=== PATIENT | female | born 1940 | race Caucasian/White ===

== ENCOUNTER 2016-09-02 17:25 | Emergency (ER) | payer MEDICARE, BC ==
[2016-09-02 18:08] LABS: BASOPHILS 0.3 % (0.0-2.0); EOSINOPHILS 0 % (0-7); HEMATOCRIT 42.6 % (36.0-48.0); IMMATURE GRANULOCYTES 0.3 % (0-5); LYMPHOCYTES 26.6 % (15-50); MCH 31.4 pg (26.0-34.0); MCHC 35.2 g/dL (31.0-37.0); MCV 89.3 fL (80.0-100.0); MEAN PLATELET VOLUME 10.4 fL (7.4-10.4); NEUTROPHILS 55.8 % (40-80); PLATELET COUNT 155 10x3/uL (130-400); RBC 4.77 10x6/uL (4.00-5.40)
[2016-09-02 18:16] LABS: APTT 27.3 SECONDS (22.8-39.4); INR 0.98 (0.85-1.17); PROTIME 12.8 SECONDS (11.6-15.0)
[2016-09-02 18:30] LABS: ALBUMIN 3.6 g/dL (3.4-5.0); ANION GAP 15.9 mmol/L (8-16); BILIRUBIN - TOTAL 0.42 mg/dL (0.2-1.3); CARBON DIOXIDE 24.3 mmol/L (21.0-32.0); CREATININE - SERUM 1.1 mg/dL (0.6-1.3); POTASSIUM - SERUM 3.2 mmol/L (3.5-5.1); PROTEIN - SERUM 7.1 g/dL (6.4-8.2)
== END 2016-09-03 00:40 | disposition home or self-care (01) ==
LOC: D.ER 17:25
PROVIDERS: Emergency Medicine
DX: K29.00 Acute gastritis without bleeding (principal); E87.6 Hypokalemia; F41.9 Anxiety disorder, unspecified; K81.0 Acute cholecystitis; R19.7 Diarrhea, unspecified; E03.9 Hypothyroidism, unspecified; F32.9 Major depressive disorder, single episode, unspecified

== ENCOUNTER → 2016-09-25 08:31 | Outpatient (CLI) | payer MEDICARE, BC | END | disposition home or self-care (01) | LOC: D.NM 08:31 | DX: R10.11 Right upper quadrant pain (principal) ==

== ENCOUNTER 2017-03-08 14:27 | Emergency (ER) | payer MEDICARE, BC | END 2017-03-08 17:05 | disposition home or self-care (01) | LOC: D.ER 14:27 | DX: S52.502A Unspecified fracture of the lower end of left radius, initial encounter for closed fracture (principal); W19.XXXA Unspecified fall, initial encounter; Y93.89 Activity, other specified; Y92.019 Unspecified place in single-family (private) house as the place of occurrence of the external cause; E03.9 Hypothyroidism, unspecified ==

== ENCOUNTER 2017-06-20 15:54 | Emergency (ER) | payer MEDICARE, BC ==
[2017-06-20 17:02] LABS: ALBUMIN 3.9 g/dL (3.4-5.0); ALKALINE PHOSPHATASE 59 U/L (46-116); ALT (SGPT) 47 U/L (10-68); BILIRUBIN - TOTAL 0.38 mg/dL (0.2-1.3); CALC OSMOLALITY 257 mosm/kg (275-300); CALCIUM 9.1 mg/dL (8.5-10.1); CARBON DIOXIDE 25.3 mmol/L (21.0-32.0); CHLORIDE - SERUM 92 mmol/L (98-107); CREATININE - SERUM 0.7 mg/dL (0.6-1.3); GLUCOSE 111 mg/dL (74-106); POTASSIUM - SERUM 4.1 mmol/L (3.5-5.1); PROTEIN - SERUM 7.4 g/dL (6.4-8.2); SODIUM 128 mmol/L (136-145); UREA NITROGEN 12 mg/dL (7-18); eGFR NON AFRICAN AMERICAN 86 mL/min (90-120)
[2017-06-20 17:48] LABS: BASOPHILS 0.3 % (0-2); EOSINOPHILS 2.7 % (0-7); HEMATOCRIT 36.5 % (36.0-48.0); IMMATURE GRANULOCYTES 0.2 % (0-5); LYMPHOCYTES 51.6 % (15-50); MCHC 35.6 g/dL (31.0-37.0); MCV 89.9 fL (80.0-100.0); MEAN PLATELET VOLUME 10.4 fL (7.4-10.4); MONOCYTES 8.4 % (2-11); NEUTROPHILS 36.8 % (40-80); RBC 4.06 10x6/uL (4.00-5.40); RDW 12.3 % (11.5-14.5); WBC 8.7 10x3/uL (4.8-10.8)
[2017-06-20 18:25] LABS: PLATELET COUNT 221 10x3/uL (130-400)
[2017-06-20 18:28] LABS: CREATINE KINASE 294 UL (21-215); THYROID STIMULATING HORMONE 1.41 uIU/mL (0.36-3.74); TROPONIN-I < 0.017 ng/mL (0.000-0.060)
[2017-06-20 18:31] LABS: CKMB 3.9 U/L (0.0-3.6)
[2017-06-20 18:49] LABS: INR 0.99 (0.85-1.17); PROTIME 12.7 SECONDS (11.6-15.0)
[2017-06-20 19:13] LABS: APPEARANCE CLEAR (CLEAR); BILIRUBIN NEGATIVE (NEGATIVE); COLOR YELLOW (YELLOW); GLUCOSE NEGATIVE (NEGATIVE); KETONE SMALL mg/dL (NEGATIVE); NITRITE NEGATIVE (NEGATIVE); PROTEIN NEGATIVE (NEGATIVE); UROBILINOGEN NORMAL (NORMAL)
[2017-06-20 19:14] LABS: BACTERIA FEW /hpf (NONE SEEN); EPITHELIAL CELLS 0-5 /hpf (0-5); RED CELLS - URINE 0-5 /hpf (0-5); WHITE CELLS - URINE 0-5 /hpf (0-5)
[2017-07-27 23:53] VITALS: BMI 19.0
== END 2017-06-20 20:57 | disposition home or self-care (01) ==
LOC: EDBD 15:54 → D.ER 15:54
PROVIDERS: Emergency Medicine; Nurse Practitioner Family
DX: I10 Essential (primary) hypertension (principal); N39.0 Urinary tract infection, site not specified; F41.9 Anxiety disorder, unspecified

== ENCOUNTER 2017-07-27 12:45 | Inpatient (IN) | payer MEDICARE ==
[~2017-07-27] VITALS: Ht 172.7 cm; Wt 56.1 kg
--- NOTE | ~2017-07-27 | EC ---
PATIENT:MAINOR MANSFIELD DATE OF SERVICE: 07/27/17 SEX: F MEDICAL RECORD: [id number] DATE OF : 38 LOCATION:D.MS Hartmann222 AGE OF PATIENT: 77 ADMISSION DATE: 07/27/17 REFERRING PHYSICIAN: INTERPRETING PHYSICIAN: SHANTI BOUCHER MD ECHOCARDIOGRAM REPORT ECHO CHARGES 4 ECHO COMPLETE CLINICAL DIAGNOSIS: A-FIB ECHOCARDIOGRAPHIC MEASUREMENTS (adult normal given) AC root (d.<3.7cm) 3. cm LV Septum d (<1.2 cm> 1.3 cm Valve Excursion 2.1 cm LV Septum (systole) 1.8 cm Left Atria (s.<4.0cm> 4.4 cm LVPW d(<1.2cm) 1.2 cm RV (d.<2.3cm) 1.8 cm LVPW (sytole) 2.1 cm LV diastole(<5.6CM) 4.5 cm MV E-F(>70mm/sec) cm LV systole 2.2 cm LVOT Diameter 1.8 cm MV exc.(>10mm) cm Est.ejection fraction (50-75%) % Pericardial Effusion N DOPPLER: LVIT cm/sec A cm/sec E 129 cm/sec LA cm/sec RVSP 31.0 mmHg LVOT 59.0 cm/sec AOP1/2T m/s Asc. Ao 114 cm/sec RVOT 61.0 cm/sec RA cm/sec PA 87.0 cm/sec AV Gradient Peak 5.2 mmHg AV Mean 2.4 mmHg AV Area 1.5 cm MV Gradient Peak 7.4 mmHg MV Mean 2.4 mmHg MV Area cm COMMENTS: Technical Writing Lead/Mgr: Bren LANOE Commercial Sales Consultant: 1 Dr. Boucher TAPE# PACS DATE OF SERVICE: 07/28/2017 DATE OF SERVICE: 07/28/2017 FINDINGS: 1. Left ventricle chamber size is within normal limits. Left ventricular systolic function is normal. Overall ejection fraction estimated at 50%. 2. Left atrium is enlarged at 4.4 cm. Right atrium and right ventricle chamber sizes are within normal limits. 3. Valvular structures have normal structure and motion. ECHOCARDIOGRAM REPORT [id number] MAINOR MANSFIELD 4. Doppler interrogation reveals moderate mitral regurgitation, mild tricuspid regurgitation, no other valvular insufficiency or stenosis. Pulmonary systolic pressure is normal, estimated at 31 mmHg. 5. No evidence of pericardial effusion or left ventricular thrombus. TRANSINT:[id number] Voice Confirmation ID: [id number] DOCUMENT ID: [id number] SHANTI BOUCHER MD CC: [id number] DICTATION DATE: 07/29/17943 SENIOR NETWORK ARCHITECT: 07/29/17 1224 ADM IN [facility] [address] [place] [address]
--- NOTE | ~2017-07-27 | CN ---
PATIENT NAME:MAINOR WILBURN MEDICAL RECORD: [id number] : 38 LOCATION:D.MS Hartmann2223 ADMIT DATE: 07/27/17 ACCOUNT: [id number] CONSULTING PHYSICIAN: SHANTI RODRIGUEZ MD REFERRING PHYSICIAN: LINO SZYMANSKI MD DATE OF CONSULTATION: 07/28/2017 ADMITTING DIAGNOSES: 1. Paroxysmal atrial fibrillation. 2. Flu. HISTORY OF PRESENT ILLNESS: Mrs. Wilburn presented with flu symptomatology, she is found to be going in and out of atrial fibrillation. She has no history of atrial fibrillation. She does have a history of hypothyroidism, on replacement. She has no chest pain or chest discomfort. PHYSICAL EXAMINATION: GENERAL APPEARANCE: Well-nourished, well-developed, appears stated age. Level of distress, comfortable. PSYCHIATRIC: Mental status, alert, normal affect. Orientation, oriented to time, place and person. EYES: Lids and conjunctiva, noninjected. No discharge, no pallor. ENT: Lips, teeth, gums, normal dentition. Oropharynx, no cyanosis, no pallor. NECK: Carotid arteries, bilateral normal upstroke, no bruits, no thrills. JUGULAR VEINS: No jugular venous pressure or distention. CERVICAL LYMPH NODES: Nontender, nonenlarged. THYROID: Not enlarged. Nontender. No nodules. LUNGS: Respiratory effort, unlabored. CHEST: Normal curvature. No thoracic deformity. No chest wall tenderness. Percussion, resonant. Auscultation, clear. No wheezes, no rales, no rhonchi. CARDIOVASCULAR: Precordial exam, nondisplaced. No heaves or pericardial thrills. Rate and rhythm, regular. Heart sounds, normal S1, normal S2. No S3, no gallop, no rub. Systolic murmur, not heard. Diastolic murmur, not heard. EXTREMITIES: No cyanosis, no edema. Peripheral pulses, full and equal in all extremities, except as noted. No bruits appreciated. ABDOMEN: Soft, nondistended. Normal aorta. No bruit. Nontender. No masses. Liver, nontender, no hepatomegaly. Spleen, nontender, no splenomegaly. MUSCULOSKELETAL: No joint tenderness. No joint swelling. No erythema. NEUROLOGICAL: Normal gait, normal strength, normal tone. SKIN: Warm and dry. OVERALL IMPRESSION: Paroxysmal atrial fibrillation. We will start her on sotalol 80 mg b.i.d. and get an echocardiogram, most likely it is related to the flu-like illness. We will follow up as an outpatient and hopefully discontinue the sotalol soon thereafter depending upon the chamber sizes of the left atrium and LV. TRANSINT:[id number] Voice Confirmation ID: [id number] DOCUMENT ID: [id number] CONSULT REPORT [id number] MAINOR WILBURN JEFFREY MD CC: [id number] DICTATION DATE: 07/28/17841 FRONT END ARCHITECT: 07/28/17934 ADM IN [facility] [address] [place] [address]
[2017-07-27 13:19] LABS: HEMATOCRIT 35.3 % (36.0-48.0); HEMOGLOBIN 13.1 g/dL (12-16); MCHC 37.1 g/dL (31.0-37.0); MCV 86.1 fL (80.0-100.0); MEAN PLATELET VOLUME 9.8 fL (7.4-10.4); RDW 12.2 % (11.5-14.5); WBC 2.7 10x3/uL (4.8-10.8)
[2017-07-27 13:21] LABS: PLATELET COUNT 164 10x3/uL (130-400)
[2017-07-27 14:08] LABS: ALBUMIN 3.4 g/dL (3.4-5.0); BILIRUBIN - TOTAL 0.17 mg/dL (0.2-1.3); CALCIUM 7.8 mg/dL (8.5-10.1); CARBON DIOXIDE 21.3 mmol/L (21.0-32.0); CREATININE - SERUM 1.1 mg/dL (0.6-1.3); POTASSIUM - SERUM 4.7 mmol/L (3.5-5.1); PROTEIN - SERUM 6.4 g/dL (6.4-8.2)
[2017-07-27 14:11] LABS: LYMPHOCYTES 55 % (15-50); MONOCYTES 9 % (2-11); NEUTROPHILS 30 % (40-80); PLATELET ESTIMATE NORMAL
[2017-07-27 14:12] LABS: ROULEAUX 1+
[2017-07-27 14:29] LABS: ANION GAP 15.4 mmol/L (8-16)
[2017-07-27 15:15] LABS: INR 0.93 (0.85-1.17); PROTIME 12.1 SECONDS (11.6-15.0)
[2017-07-27 15:23] LABS: APPEARANCE CLEAR (CLEAR); BILIRUBIN NEGATIVE (NEGATIVE); COLOR YELLOW (YELLOW); GLUCOSE NEGATIVE (NEGATIVE); KETONE NEGATIVE (NEGATIVE); NITRITE NEGATIVE (NEGATIVE); PROTEIN NEGATIVE (NEGATIVE); SPECIFIC GRAVITY 1.015 (1.005-1.020); UROBILINOGEN NORMAL (NORMAL)
[2017-07-27 15:23] LABS: AMYLASE - SERUM 55 U/L (25-115); CKMB 16.6 U/L (0.0-3.6); MAGNESIUM - SERUM 1.8 mg/dL (1.8-2.4); PRO BNP 298 pg/mL (0-450); THYROID STIMULATING HORMONE 1.44 uIU/mL (0.36-3.74); TROPONIN-I 0.029 ng/mL (0.000-0.060)
[2017-07-27 15:24] LABS: CREATINE KINASE 1749 UL (21-215)
[2017-07-27 15:24] LABS: RED CELLS - URINE 0-5 /hpf (0-5); WHITE CELLS - URINE 0-5 /hpf (0-5)
[2017-07-27 15:25] LABS: BACTERIA FEW /hpf (NONE SEEN); EPITHELIAL CELLS 0-5 /hpf (0-5)
[2017-07-27 18:26] LABS: HEMATOCRIT 33.7 % (36.0-48.0); HEMOGLOBIN 12.1 g/dL (12-16)
[2017-07-27 18:42] LABS: CKMB 16.1 U/L (0.0-3.6); TROPONIN-I 0.033 ng/mL (0.000-0.060)
[2017-07-27 18:43] LABS: CREATINE KINASE 1548 UL (21-215)
[2017-07-27] MEDS ORDERED: SYNTHROID100 MCG PO (22:50)
[2017-07-27] MEDS ORDERED: LATUDA80 MG PO (22:50)
[2017-07-27] MEDS ORDERED: ATIVAN1 MG PO (22:52)
[2017-07-27] MEDS ORDERED: TRINTELLIX5 MG PO (22:52)
[2017-07-27 23:53] VITALS: BP 148/69; Ht 172.7 cm; Wt 56.1 kg
[2017-07-28 00:04] LABS: HEMOGLOBIN 11.4 g/dL (12-16)
[2017-07-28 00:30] LABS: CREATINE KINASE 1619 UL (21-215)
[2017-07-28 04:36] VITALS: BP 180/98
[2017-07-28 05:40] LABS: BASOPHILS 0.3 % (0-2); EOSINOPHILS 0.3 % (0-7); HEMATOCRIT 35.8 % (36.0-48.0); HEMOGLOBIN 12.8 g/dL (12-16); IMMATURE GRANULOCYTES 0.5 % (0-5); LYMPHOCYTES 33.7 % (15-50); MCH 31.2 pg (26.0-34.0); MCHC 35.8 g/dL (31.0-37.0); MCV 87.3 fL (80.0-100.0); MEAN PLATELET VOLUME 9.3 fL (7.4-10.4); MONOCYTES 15.1 % (2-11); NEUTROPHILS 50.1 % (40-80); PLATELET COUNT 139 10x3/uL (130-400); RDW 12.3 % (11.5-14.5)
[2017-07-28 05:43] LABS: WBC 3.7 10x3/uL (4.8-10.8)
[2017-07-28 06:04] LABS: ALBUMIN 2.9 g/dL (3.4-5.0); ALKALINE PHOSPHATASE 49 U/L (46-116); ALT (SGPT) 233 U/L (10-68); CALC OSMOLALITY 247 mosm/kg (275-300); CARBON DIOXIDE 23.3 mmol/L (21.0-32.0); CHLORIDE - SERUM 92 mmol/L (98-107); CKMB 20.3 U/L (0.0-3.6); CREATINE KINASE 1908 UL (21-215); CREATININE - SERUM 0.9 mg/dL (0.6-1.3); GLUCOSE 109 mg/dL (74-106); POTASSIUM - SERUM 4.1 mmol/L (3.5-5.1); SODIUM 123 mmol/L (136-145); TROPONIN-I 0.042 ng/mL (0.000-0.060); UREA NITROGEN 11 mg/dL (7-18); eGFR NON AFRICAN AMERICAN 64 mL/min (90-120)
[2017-07-28 07:03] VITALS: BP 149/79
[2017-07-28 11:10] VITALS: BP 176/76
[2017-07-28 11:58] LABS: HEMOGLOBIN 13.5 g/dL (12-16)
[2017-07-28 15:07] VITALS: BP 150/66
[2017-07-28 18:28] LABS: HEMOGLOBIN 14.1 g/dL (12-16)
[2017-07-28 20:30] VITALS: BP 121/75
[2017-07-28 23:42] LABS: HEMATOCRIT 37.7 % (36.0-48.0); HEMOGLOBIN 13.5 g/dL (12-16)
[2017-07-29 00:30] VITALS: BP 133/78
[2017-07-29 04:30] VITALS: BP 126/72
[2017-07-29 05:30] LABS: BASOPHILS 0.4 % (0-2); EOSINOPHILS 0.2 % (0-7); HEMATOCRIT 38.5 % (36.0-48.0); HEMOGLOBIN 13.4 g/dL (12-16); IMMATURE GRANULOCYTES 0.4 % (0-5); LYMPHOCYTES 52.4 % (15-50); MCH 30.9 pg (26.0-34.0); MCHC 34.8 g/dL (31.0-37.0); MCV 88.7 fL (80.0-100.0); MEAN PLATELET VOLUME 10.3 fL (7.4-10.4); MONOCYTES 12.5 % (2-11); NEUTROPHILS 34.1 % (40-80); PLATELET COUNT 146 10x3/uL (130-400); RBC 4.34 10x6/uL (4.00-5.40); RDW 12.6 % (11.5-14.5)
[2017-07-29 05:42] LABS: INR 0.99 (0.85-1.17); PROTIME 12.7 SECONDS (11.6-15.0)
[2017-07-29 06:00] LABS: ALBUMIN 2.6 g/dL (3.4-5.0); ALKALINE PHOSPHATASE 42 U/L (46-116); ALT (SGPT) 183 U/L (10-68); AMYLASE - SERUM 47 U/L (25-115); CALC OSMOLALITY 250 mosm/kg (275-300); CARBON DIOXIDE 18.5 mmol/L (21.0-32.0); CHLORIDE - SERUM 95 mmol/L (98-107); CHOL - HDL RATIO 2.4 ratio (2.3-4.1); CHOLESTEROL, TOTAL 135 mg/dL (0-200); CREATININE - SERUM 0.7 mg/dL (0.6-1.3); GLUCOSE 103 mg/dL (74-106); HDL CHOLESTEROL 57 mg/dL (32-96); LDL CHOLESTEROL 59 mg/dL (0-100); LIPASE 184 U/L (73-393); POTASSIUM - SERUM 3.9 mmol/L (3.5-5.1); PRE-ALBUMIN 17.7 mg/dL (18.0-35.7); PROTEIN - SERUM 5.1 g/dL (6.4-8.2); SODIUM 125 mmol/L (136-145); TRIGLYCERIDE 99 mg/dL (30-200); UREA NITROGEN 11 mg/dL (7-18); eGFR NON AFRICAN AMERICAN 86 mL/min (90-120)
[2017-07-29 09:23] VITALS: BP 151/89
[2017-07-29 11:43] VITALS: BP 130/78
[2017-07-29 12:30] LABS: HEMATOCRIT 32.7 % (36.0-48.0); HEMOGLOBIN 11.4 g/dL (12-16)
[2017-07-29 16:00] VITALS: BP 139/83
[2017-07-29 19:08] LABS: HEMATOCRIT 36.4 % (36.0-48.0); HEMOGLOBIN 12.6 g/dL (12-16)
[2017-07-29 20:00] VITALS: BP 147/79
[2017-07-30] VITALS: BP 155/82
[2017-07-30 00:15] LABS: HEMATOCRIT 34.6 % (36.0-48.0); HEMOGLOBIN 12.2 g/dL (12-16)
[2017-07-30 04:00] VITALS: BP 146/61
[2017-07-30 05:39] LABS: BASOPHILS 0.1 % (0-2); EOSINOPHILS 0.1 % (0-7); HEMATOCRIT 35.1 % (36.0-48.0); HEMOGLOBIN 12.5 g/dL (12-16); IMMATURE GRANULOCYTES 0.4 % (0-5); LYMPHOCYTES 41.3 % (15-50); MCH 31.1 pg (26.0-34.0); MCHC 35.6 g/dL (31.0-37.0); MCV 87.3 fL (80.0-100.0); MEAN PLATELET VOLUME 10.4 fL (7.4-10.4); MONOCYTES 9.9 % (2-11); NEUTROPHILS 48.2 % (40-80); PLATELET COUNT 170 10x3/uL (130-400); RBC 4.02 10x6/uL (4.00-5.40); RDW 12.5 % (11.5-14.5)
[2017-07-30 05:56] LABS: WBC 7.2 10x3/uL (4.8-10.8)
[2017-07-30 06:12] LABS: ALBUMIN 2.6 g/dL (3.4-5.0); ANION GAP 12.3 mmol/L (8-16); BILIRUBIN - TOTAL 0.2 mg/dL (0.2-1.3); CALCIUM 7.2 mg/dL (8.5-10.1); CARBON DIOXIDE 21.3 mmol/L (21.0-32.0); CREATININE - SERUM 0.8 mg/dL (0.6-1.3); POTASSIUM - SERUM 3.6 mmol/L (3.5-5.1); PROTEIN - SERUM 5.6 g/dL (6.4-8.2)
[2017-07-30 09:14] VITALS: BP 167/88
[2017-07-30 12:55] VITALS: BP 149/81
[2017-07-30 16:59] VITALS: BP 167/91
[2017-07-30 22:08] VITALS: BP 156/90
[2017-07-31 04:55] VITALS: BP 154/84
[2017-07-31 05:50] LABS: BASOPHILS 0.1 % (0-2); EOSINOPHILS 0 % (0-7); HEMATOCRIT 34.5 % (36.0-48.0); HEMOGLOBIN 12.1 g/dL (12-16); IMMATURE GRANULOCYTES 0.3 % (0-5); MCH 30.9 pg (26.0-34.0); MCHC 35.1 g/dL (31.0-37.0); MCV 88.2 fL (80.0-100.0); MEAN PLATELET VOLUME 10.2 fL (7.4-10.4); MONOCYTES 11.2 % (2-11); NEUTROPHILS 44.4 % (40-80); PLATELET COUNT 173 10x3/uL (130-400); RBC 3.91 10x6/uL (4.00-5.40); RDW 12.7 % (11.5-14.5); WBC 7.2 10x3/uL (4.8-10.8)
[2017-07-31 06:40] LABS: ALBUMIN 2.7 g/dL (3.4-5.0); ALKALINE PHOSPHATASE 36 U/L (46-116); ALT (SGPT) 139 U/L (10-68); BILIRUBIN - TOTAL 0.42 mg/dL (0.2-1.3); CALCIUM 7.3 mg/dL (8.5-10.1); CARBON DIOXIDE 22.3 mmol/L (21.0-32.0); CHLORIDE - SERUM 98 mmol/L (98-107); CREATININE - SERUM 0.9 mg/dL (0.6-1.3); GLUCOSE 112 mg/dL (74-106); POTASSIUM - SERUM 3.4 mmol/L (3.5-5.1); PROTEIN - SERUM 5.6 g/dL (6.4-8.2); SODIUM 131 mmol/L (136-145); eGFR NON AFRICAN AMERICAN 64 mL/min (90-120)
[2017-07-31 06:43] LABS: CALC OSMOLALITY 262 mosm/kg (275-300); CREATINE KINASE 1824 UL (21-215); UREA NITROGEN 9 mg/dL (7-18)
[2017-07-31 06:44] LABS: CKMB 9.6 U/L (0.0-3.6)
[2017-07-31 08:34] VITALS: BP 161/89
[2017-07-31] MEDS ORDERED: METOPROLOL TART50 MG PO (11:29)
[2017-07-31] MEDS ORDERED: XALATAN 0.0052.5 ML EACH EYE (11:29)
[2017-07-31 12:29] VITALS: BP 149/101
[2017-07-31 15:52] VITALS: BP 168/97
[2017-07-31 22:11] VITALS: BP 162/84
[2017-08-01 01:48] VITALS: BP 161/82
[2017-08-01 05:29] VITALS: BP 160/97
[2017-08-01 05:54] LABS: BASOPHILS 0 % (0-2); EOSINOPHILS 0.1 % (0-7); HEMOGLOBIN 12.5 g/dL (12-16); IMMATURE GRANULOCYTES 0.2 % (0-5); LYMPHOCYTES 36.9 % (15-50); MCH 30.9 pg (26.0-34.0); MCHC 34.7 g/dL (31.0-37.0); MCV 88.9 fL (80.0-100.0); MEAN PLATELET VOLUME 10.1 fL (7.4-10.4); MONOCYTES 9.3 % (2-11); NEUTROPHILS 53.5 % (40-80); PLATELET COUNT 202 10x3/uL (130-400); RBC 4.05 10x6/uL (4.00-5.40); RDW 12.8 % (11.5-14.5); WBC 8.7 10x3/uL (4.8-10.8)
[2017-08-01 06:08] LABS: ALBUMIN 3.1 g/dL (3.4-5.0); ALKALINE PHOSPHATASE 45 U/L (46-116); ALT (SGPT) 137 U/L (10-68); CALC OSMOLALITY 266 mosm/kg (275-300); CALCIUM 8.2 mg/dL (8.5-10.1); CARBON DIOXIDE 24.2 mmol/L (21.0-32.0); CHLORIDE - SERUM 98 mmol/L (98-107); CREATININE - SERUM 0.8 mg/dL (0.6-1.3); GLUCOSE 145 mg/dL (74-106); POTASSIUM - SERUM 3.6 mmol/L (3.5-5.1); PROTEIN - SERUM 6.5 g/dL (6.4-8.2); SODIUM 132 mmol/L (136-145); UREA NITROGEN 9 mg/dL (7-18); eGFR NON AFRICAN AMERICAN 73 mL/min (90-120)
[2017-08-01 06:20] LABS: CREATINE KINASE 1586 UL (21-215)
[2017-08-01 12:08] VITALS: BP 160/89
[2017-08-01] MEDS ORDERED: BETAPACE 80 MG80 MG PO (12:59)
== END 2017-08-01 16:45 | disposition home or self-care (01) | DRG 641 ==
LOC: D.ER 12:45 → D.SDCHOLD 16:16 → D.MS 16:16
PROVIDERS: Emergency Medicine; Family Medicine; Internal Medicine Gastroenterology; Nurse Practitioner Family
DX: E87.1 Hypo-osmolality and hyponatremia (principal); K92.1 Melena; M62.82 Rhabdomyolysis; R64 Cachexia; Z68.1 Body mass index [BMI] 19.9 or less, adult; E86.0 Dehydration; J11.1 Influenza due to unidentified influenza virus with other respiratory manifestations; I48.91 Unspecified atrial fibrillation; R74.0 Nonspecific elevation of levels of transaminase and lactic acid dehydrogenase [LDH]; E03.9 Hypothyroidism, unspecified; K80.20 Calculus of gallbladder without cholecystitis without obstruction; D72.819 Decreased white blood cell count, unspecified; D64.9 Anemia, unspecified

== ENCOUNTER 2017-08-13 14:32 | Inpatient (IN) | payer MEDICARE ==
[~2017-08-13] VITALS: Ht 172.7 cm; Wt 53.1 kg
--- NOTE | ~2017-08-13 | RHP ---
PATIENT: MAINOR MANSFIELD MEDICAL RECORD: [id number] ACCOUNT: [id number] LOCATION:[id number] : 38 ADMISSION DATE: 08/13/17 REHABILITATION HISTORY AND PHYSICAL EXAMINATION POST ADMISSION PHYSICIAN EXAMINATION DATE OF ADMISSION: 08/13/2017. ADMITTING DIAGNOSES: Disuse myopathy HISTORY OF PRESENT ILLNESS: The patient is a 77-year-old female patient who is admitted to rehab with a working diagnosis of disuse myopathy. She presented with weakness and chest pain on 08/06, she has chronic hyponatremia on recent admission to the hospital on 07/27 with nausea, vomiting, flu-like symptoms, paroxysmal atrial fib, electrolyte abnormalities, diarrhea, and black tarry stools. She had test positive for influenza, at that time was started on Tamiflu, GI and nephrology were consulted. She was followed during her acute inpatient stay. She was placed on Zofran drip and rehydrated, no evidence of gallbladder disease or any other problems during her recent stay. She did have elevated transaminases and some mild rhabdo. On 08/06, she presented to the ED with weakness and chest pain. She was admitted to the acute hospitalist for further workup. She was found to have a non-Q-wave AR and underwent a cardiac cath and INSURANCE CLAIMS SUPERVISOR and stent. She is now feeling better and is participating with therapies. She stated upon interview, she just too weak to go home at this time, feels like she would greatly benefit from acute inpatient rehabilitation. She has been evaluated by GI, nephrology, and cardiology during her stay. She is currently on 2 liters nasal cannula, but not usually on at home. She has proximal muscle weakness with difficulty arising from bed to chair. She also states history of urinary incontinence and wears pads. She is having a central upper extremity tremors and states that this has been seen by neurologist, is not Parkinson's. She lives in an apartment at [facility] and states she was independent with mobility and ADLs prior, currently set for moderate assist for ADLs and moderate assist to total assist for mobility. She plans to return back home to her prior level of functioning or better if possible. COMORBIDITIES: In this patient include oropharyngeal dysphagia, non-Q-wave AR, hypertension, generalized weakness, hypothyroidism, chronic hyponatremia, acute kidney injury, elevated transaminases, elevated troponin, leukocytosis, hbxln-kf-uingqwu hyponatremia, history of alcoholism, beer potomania, weakness, self-care deficits, and tobacco use. PAST MEDICAL HISTORY: Significant for glaucoma, coronary artery disease, bronchitis, depression, anxiety, history of alcohol use, tobacco use, and chronic back pain. PAST SURGICAL HISTORY: None. ALLERGIES: DEMEROL AND SCOPOLAMINE. CURRENT MEDICATIONS: Include tramadol 50 mg q.6 hours p.r.n., Ventolin updrafts as needed, metoprolol 50 mg daily, Synthroid 100 mcg daily, Plavix 75 mg daily, aspirin 81 mg daily, sotalol 80 mg b.i.d., Ativan 1 mg t.i.d. p.r.n., Xalatan eye drops, and polyethylene glycol 17 grams in 8 ounces of water daily. HABITS: Does have a history of tobacco and alcohol use. HISTORY AND PHYSICAL [id number] MAINOR MANSFIELD FAMILY HISTORY: Noncontributory. SOCIAL HISTORY: The patient hopes to return back home and get back to her prior level of functioning and return back to [place]. REVIEW OF SYSTEMS: GENERAL: Does complain of weakness. HEENT: She denies cold, cough, or congestion. CARDIOVASCULAR: Denies chest pain. PHYSICAL EXAMINATION: VITAL SIGNS: Stable, afebrile. GENERAL: A thin female in no acute distress, alert upon exam. HEENT: Normocephalic and atraumatic. Mucosa moist. NECK: Supple. No lymphadenopathy. LUNGS: Clear at this time. HEART: Regular rate and rhythm. ABDOMEN: Benign. EXTREMITIES: No clubbing, cyanosis, or edema. NEUROLOGIC: Intact. LABORATORY DATA: White count is 8.4, H&H of 11.8 and 37.0, and platelet count was 217. Her sodium is 131, potassium 4.6, BUN and creatinine are 14 and 0.8, and blood sugar is noted to be 143. ASSESSMENT: This is a 77-year-old female patient admitted to rehab with a working diagnosis of disuse myopathy. The patient has potential to make improvement. We instituted the following multidisciplinary therapies including, but not limited to physical, occupational, respiratory, speech, nutritional services, prosthetics, and orthotics. Given her complex condition and risk for more complications, rehabilitation cannot be provided at a lower level of care such as a fdc facility. PLAN: 1. Admit to [facility] rehab for intensive inpatient therapy to include the following disciplines: A. Physical therapy to improve gait, all transfer skills and bed mobility and modifying level. B. Occupational therapy to improve activities of daily living to a modified independent level. C. Case management to assist with discharge planning and placement options. D. Nutrition to assist with nutritional needs. E. Rehabilitation nursing to assist in monitoring the patient's underlying medical conditions and to assist with any type of bowel or bladder management. 2. The patient's current medications will be continued. 3. The patient will be placed on standard fall precautions. 4. The patient's estimated length of stay is approximately 7-10 days. 5. Discuss this patient during care team staff meeting this week. TRANSINT:[id number] Voice Confirmation ID: [id number] DOCUMENT ID: [id number] CRISTO notes whether there has been none or any medical/functional change since admission: HISTORY AND PHYSICAL [id number] MAINOR MANSFIELD - No change since preadmission screen CRISTO attests patient continues to be appropriate for IRF: - Continues to be appropriate. JOANN GOMEZ MD at 1248 CC: [id number] DICTATION DATE: 08/14/17 0815 DRYWALL CONTRACTOR: 08/14/17 0853 ADM IN [facility] [address] [place] [id number]
--- NOTE | ~2017-08-13 | DS ---
PATIENT:MAINOR MANSFIELD :38 MEDICAL RECORD: [id number] DISCHARGE SUMMARY ADMISSION DATE: 08/13/17 DISCHARGE DATE: 08/24/17 This is a discharge dated 08/24/2017 from inpatient rehabilitation. PRIMARY DIAGNOSIS: Decreased functional ability and ability to provide activities of daily living secondary to diffuse myopathy. SECONDARY DIAGNOSES: 1. Coronary artery disease. 2. Non-Q-wave myocardial infarction. 3. Acute hypoxic respiratory failure. 4. Acute kidney injury. 5. Hyperkalemia. 6. Anemia. 7. Paroxysmal atrial fibrillation. 8. Cdqim-mo-nslukto hyponatremia. 9. Urinary incontinence, chronic. 10. Tremor. 11. Oropharyngeal dysphagia. 12. Hypertension. 13. Hypothyroidism. 14. Glaucoma. 15. Chronic back pain. 16. Depression/anxiety. HOSPITAL COURSE: Full H&P is located elsewhere on the chart on this 77-year-old female, who was admitted to inpatient rehab for physical therapy and occupational therapy to improve gait, transfer skills, bed mobility, and activities of daily living to a modified independent level. She was evaluated by PT and OT and their plans of care were followed. She required snf care for observation and assessment and medication administration. She was seen by speech therapy for management of oropharyngeal dysphagia. She remained on appropriate home medications and had supplemental oxygen to keep sats greater than 90%. Electrolytes were managed by protocol. She was cooperative with therapies, progressing towards goals. Case management was involved for discharge planning. She was considered stable for discharge on 08/24/2017. DISCHARGE MEDICATIONS: As per discharge medication reconciliation. DISCHARGE DISPOSITION: The patient is discharged home. She will continue her current diet and level of activity. She will follow up with primary care and specialists as directed and will follow with home health for continued PT and OT. At least 30 minutes was spent in this discharge activity. TRANSINT:[id number] Voice Confirmation ID: [id number] DOCUMENT ID: [id number] Dictated By: OLEGARIO JEFF I have interviewed/examined the above patient and agree with these documented findings. DISCHARGE SUMMARY REPORT [id number] SHYLARADHIKAMAINORJOANN RUBY MD at 1511 at 1512 CC: [id number] DICTATION DATE: 09/23/17 1721 UTILITY SALES AND SERVICE MANAGER: 09/24/17 1154 DIS IN 08/24/17 [facility] [address] [facility] [place] [address]
[~2017-08-13 14:32] MED LIST: ATIVAN1 MG PO; BAYER CHEWABLE81 MG PO; BETAPACE 80 MG80 MG PO; LATUDA80 MG PO; METOPROLOL TART50 MG PO; PLAVIX75 MG PO; SYNTHROID100 MCG PO; TRINTELLIX5 MG PO; XALATAN 0.0052.5 ML EACH EYE
[2017-08-13 16:19] VITALS: BP 128/71; BMI 17.8
[2017-08-13 19:00] VITALS: BP 115/72
[2017-08-14 06:46] LABS: CALCIUM 8.2 mg/dL (8.5-10.1); CARBON DIOXIDE 21.6 mmol/L (21.0-32.0); CREATININE - SERUM 0.8 mg/dL (0.6-1.3); POTASSIUM - SERUM 4.6 mmol/L (3.5-5.1)
[2017-08-14 06:49] LABS: BASOPHILS 0.6 % (0-2); EOSINOPHILS 0.8 % (0-7); HEMOGLOBIN 11.8 g/dL (12-16); IMMATURE GRANULOCYTES 0.6 % (0-5); LYMPHOCYTES 34.1 % (15-50); MCH 31.4 pg (26.0-34.0); MCHC 31.9 g/dL (31.0-37.0); MCV 98.4 fL (80.0-100.0); MEAN PLATELET VOLUME 10.7 fL (7.4-10.4); MONOCYTES 11.6 % (2-11); NEUTROPHILS 52.3 % (40-80); PLATELET COUNT 217 10x3/uL (130-400); RBC 3.76 10x6/uL (4.00-5.40); RDW 14.8 % (11.5-14.5); WBC 8.4 10x3/uL (4.8-10.8)
[2017-08-14 08:20] VITALS: BP 116/52
[2017-08-14 13:30] VITALS: Ht 172.7 cm; Wt 53.1 kg
[2017-08-15 02:22] VITALS: BP 115/74
[2017-08-15 05:39] LABS: BASOPHILS 0.2 % (0-2); EOSINOPHILS 1.8 % (0-7); HEMATOCRIT 33.1 % (36.0-48.0); HEMOGLOBIN 11.2 g/dL (12-16); IMMATURE GRANULOCYTES 0.3 % (0-5); LYMPHOCYTES 40.1 % (15-50); MCH 31.2 pg (26.0-34.0); MCHC 33.8 g/dL (31.0-37.0); MCV 92.2 fL (80.0-100.0); MEAN PLATELET VOLUME 10.2 fL (7.4-10.4); MONOCYTES 11.8 % (2-11); NEUTROPHILS 45.8 % (40-80); PLATELET COUNT 220 10x3/uL (130-400); RBC 3.59 10x6/uL (4.00-5.40); RDW 14.3 % (11.5-14.5); WBC 6.2 10x3/uL (4.8-10.8)
[2017-08-15 05:52] LABS: CALC OSMOLALITY 267 mosm/kg (275-300); CARBON DIOXIDE 23.7 mmol/L (21.0-32.0); CHLORIDE - SERUM 100 mmol/L (98-107); CREATININE - SERUM 0.7 mg/dL (0.6-1.3); GLUCOSE 135 mg/dL (74-106); POTASSIUM - SERUM 4.2 mmol/L (3.5-5.1); SODIUM 132 mmol/L (136-145); UREA NITROGEN 14 mg/dL (7-18); eGFR NON AFRICAN AMERICAN 86 mL/min (90-120)
[2017-08-15 07:50] VITALS: BP 124/81
[2017-08-15 20:08] VITALS: BP 111/67
[2017-08-16 07:43] VITALS: BP 117/73
[2017-08-17 02:00] VITALS: BP 134/74
[2017-08-17 07:02] LABS: BASOPHILS 0.1 % (0-2); EOSINOPHILS 0.2 % (0-7); HEMATOCRIT 32.9 % (36.0-48.0); HEMOGLOBIN 11.2 g/dL (12-16); IMMATURE GRANULOCYTES 0.3 % (0-5); LYMPHOCYTES 30.8 % (15-50); MCV 91.1 fL (80.0-100.0); MEAN PLATELET VOLUME 10.7 fL (7.4-10.4); MONOCYTES 7.4 % (2-11); NEUTROPHILS 61.2 % (40-80); RBC 3.61 10x6/uL (4.00-5.40); RDW 14.1 % (11.5-14.5); WBC 9.1 10x3/uL (4.8-10.8)
[2017-08-17 07:05] LABS: PLATELET COUNT 277 10x3/uL (130-400)
[2017-08-17 07:08] LABS: CALC OSMOLALITY 262 mosm/kg (275-300); CALCIUM 8.1 mg/dL (8.5-10.1); CARBON DIOXIDE 20.6 mmol/L (21.0-32.0); CHLORIDE - SERUM 98 mmol/L (98-107); CREATININE - SERUM 0.7 mg/dL (0.6-1.3); GLUCOSE 181 mg/dL (74-106); POTASSIUM - SERUM 4.5 mmol/L (3.5-5.1); SODIUM 128 mmol/L (136-145); UREA NITROGEN 15 mg/dL (7-18); eGFR NON AFRICAN AMERICAN 86 mL/min (90-120)
[2017-08-17 09:12] VITALS: BP 148/78
[2017-08-17 23:04] VITALS: BP 150/78
[2017-08-18 08:34] VITALS: BP 144/86
[2017-08-18 15:53] LABS: BASOPHILS 0.1 % (0-2); EOSINOPHILS 0.4 % (0-7); HEMATOCRIT 36.8 % (36.0-48.0); HEMOGLOBIN 12.4 g/dL (12-16); IMMATURE GRANULOCYTES 0.5 % (0-5); LYMPHOCYTES 22.7 % (15-50); MCH 31.7 pg (26.0-34.0); MCHC 33.7 g/dL (31.0-37.0); MEAN PLATELET VOLUME 10.4 fL (7.4-10.4); MONOCYTES 7.5 % (2-11); NEUTROPHILS 68.8 % (40-80); RBC 3.91 10x6/uL (4.00-5.40); RDW 14.5 % (11.5-14.5)
[2017-08-18 15:54] LABS: MCV 94.1 fL (80.0-100.0); PLATELET COUNT 337 10x3/uL (130-400); WBC 11.5 10x3/uL (4.8-10.8)
[2017-08-18 16:10] LABS: ALBUMIN 3.1 g/dL (3.4-5.0); BILIRUBIN - TOTAL 0.33 mg/dL (0.2-1.3); CALCIUM 8.9 mg/dL (8.5-10.1); CARBON DIOXIDE 18.8 mmol/L (21.0-32.0); CREATININE - SERUM 0.8 mg/dL (0.6-1.3); POTASSIUM - SERUM 4.8 mmol/L (3.5-5.1); PROTEIN - SERUM 6.9 g/dL (6.4-8.2)
[2017-08-18 20:33] VITALS: BP 150/92
[2017-08-19 07:58] VITALS: BP 150/73
[2017-08-19 19:25] VITALS: BP 130/47
[2017-08-20 06:33] LABS: BASOPHILS 0.1 % (0-2); HEMATOCRIT 36.8 % (36.0-48.0); HEMOGLOBIN 12.6 g/dL (12-16); IMMATURE GRANULOCYTES 0.4 % (0-5); LYMPHOCYTES 35.6 % (15-50); MCH 31.3 pg (26.0-34.0); MCHC 34.2 g/dL (31.0-37.0); MEAN PLATELET VOLUME 10.4 fL (7.4-10.4); MONOCYTES 9.4 % (2-11); NEUTROPHILS 53.5 % (40-80); PLATELET COUNT 328 10x3/uL (130-400); RBC 4.02 10x6/uL (4.00-5.40); WBC 11.1 10x3/uL (4.8-10.8)
[2017-08-20 06:36] LABS: MCV 91.5 fL (80.0-100.0)
[2017-08-20 06:39] LABS: CALC OSMOLALITY 256 mosm/kg (275-300); CALCIUM 8.6 mg/dL (8.5-10.1); CARBON DIOXIDE 21.6 mmol/L (21.0-32.0); CHLORIDE - SERUM 95 mmol/L (98-107); CREATININE - SERUM 0.7 mg/dL (0.6-1.3); POTASSIUM - SERUM 5.3 mmol/L (3.5-5.1); SODIUM 126 mmol/L (136-145); UREA NITROGEN 16 mg/dL (7-18); eGFR NON AFRICAN AMERICAN 86 mL/min (90-120)
[2017-08-20 06:40] LABS: GLUCOSE 153 mg/dL (74-106)
[2017-08-20 07:46] VITALS: BP 137/79
[2017-08-20 20:00] VITALS: BP 151/65
[2017-08-21 08:47] VITALS: BP 134/78
[2017-08-21 20:05] VITALS: BP 138/89
[2017-08-22 06:46] LABS: BASOPHILS 0.4 % (0-2); EOSINOPHILS 1.8 % (0-7); HEMOGLOBIN 10.7 g/dL (12-16); IMMATURE GRANULOCYTES 0.3 % (0-5); LYMPHOCYTES 41.5 % (15-50); MCH 31.3 pg (26.0-34.0); MCHC 33.4 g/dL (31.0-37.0); MEAN PLATELET VOLUME 10.1 fL (7.4-10.4); MONOCYTES 10.7 % (2-11); NEUTROPHILS 45.3 % (40-80); PLATELET COUNT 281 10x3/uL (130-400); RBC 3.42 10x6/uL (4.00-5.40); RDW 14.4 % (11.5-14.5)
[2017-08-22 06:52] LABS: CALC OSMOLALITY 258 mosm/kg (275-300); CALCIUM 8.5 mg/dL (8.5-10.1); CARBON DIOXIDE 25.2 mmol/L (21.0-32.0); CHLORIDE - SERUM 96 mmol/L (98-107); CREATININE - SERUM 0.7 mg/dL (0.6-1.3); GLUCOSE 110 mg/dL (74-106); POTASSIUM - SERUM 4.2 mmol/L (3.5-5.1); SODIUM 129 mmol/L (136-145); UREA NITROGEN 11 mg/dL (7-18); eGFR NON AFRICAN AMERICAN 86 mL/min (90-120)
[2017-08-22 06:57] LABS: MCV 93.6 fL (80.0-100.0); WBC 6.8 10x3/uL (4.8-10.8)
[2017-08-22 09:05] VITALS: BP 143/70
[2017-08-22 23:00] VITALS: BP 142/68
[2017-08-23 08:00] VITALS: BP 120/52
[2017-08-23 21:35] VITALS: BP 135/74
[2017-08-24 08:09] VITALS: BP 138/63
[2017-08-24] MEDS ORDERED: ULTRAM50 MG PO (08:11)
[2017-08-24] MEDS ORDERED: LATUDA40 MG PO (08:11)
[2017-08-24] MEDS ORDERED: PROAIR HFA8.5 GM INH (09:07)
== END 2017-08-24 13:12 | disposition home health service (06) | DRG 91 ==
LOC: D.REHAB 14:32
PROVIDERS: Emergency Medicine
DX: G72.89 Other specified myopathies (principal); I21.4 Non-ST elevation (NSTEMI) myocardial infarction; E87.1 Hypo-osmolality and hyponatremia; N17.9 Acute kidney failure, unspecified; R13.12 Dysphagia, oropharyngeal phase; I10 Essential (primary) hypertension; R53.1 Weakness; E03.9 Hypothyroidism, unspecified; R74.0 Nonspecific elevation of levels of transaminase and lactic acid dehydrogenase [LDH]; D72.829 Elevated white blood cell count, unspecified; F17.200 Nicotine dependence, unspecified, uncomplicated; I48.0 Paroxysmal atrial fibrillation

== ENCOUNTER → 2017-09-10 09:21 | Outpatient (CLI) | payer MEDICARE ==
[2017-08-14 13:30] VITALS: BMI 17.7
[~2017-09-10 09:21] MED LIST changes: +LATUDA40 MG PO; +PROAIR HFA8.5 GM INH; +ULTRAM50 MG PO
[2017-09-10 10:41] LABS: ALBUMIN 3.3 g/dL (3.4-5.0); BILIRUBIN - DIRECT 0.15 mg/dL (0.00-0.30); BILIRUBIN - INDIRECT 0.26 mg/dL (0.00-1.00); BILIRUBIN - TOTAL 0.41 mg/dL (0.2-1.3); PROTEIN - SERUM 6.9 g/dL (6.4-8.2)
== END | disposition home or self-care (01) ==
LOC: D.LAB 09-04 10:15
PROVIDERS: Internal Medicine Gastroenterology
DX: R79.89 Other specified abnormal findings of blood chemistry (principal)

== ENCOUNTER 2017-09-28 10:03 | Outpatient (CLI) | payer MEDICARE ==
[~2017-09-28] VITALS: Ht 172.7 cm; Wt 50.5 kg
[2017-09-28 11:03] VITALS: BP 164/69; Ht 172.7 cm; Wt 50.5 kg
== END 2017-09-28 14:39 | disposition home or self-care (01) ==
LOC: D.OPS 10:03
DX: E87.1 Hypo-osmolality and hyponatremia (principal)

== ENCOUNTER 2018-01-26 13:16 | Inpatient (IN) | payer MEDICARE ==
[~2018-01-26] VITALS: Ht 172.7 cm; Wt 62.6 kg
[2018-01-26] VITALS (11 sets, daily range): BP systolic 115–169; BP diastolic 75–101; BMI 18.4
--- NOTE | ~2018-01-26 | CN ---
PATIENT NAME:MAINOR MANSFIELD MEDICAL RECORD: [id number] : 38 LOCATION:D. D.2134 ADMIT DATE: 01/26/18 ACCOUNT: [id number] CONSULTING PHYSICIAN: MAVERICK CARTER MD REFERRING PHYSICIAN: ODETTE CHUN MD DATE OF CONSULTATION: 02/04/2018 PSYCHIATRIC CONSULTATION IDENTIFYING DATA: The patient is 77 years old and she is admitted to the hospital on a voluntary basis. CHIEF COMPLAINT: None. HISTORY OF PRESENT ILLNESS: The patient was initially admitted to the hospital because she was not taking her medicines and was not eating. She was found to be underweight to have urinary tract infection, leukocytosis, dehydration, hypokalemia, and atrial fibrillation. She has been stabilized medically, but continues to not eat and she is displaying a depressed mood. Upon interview, she says she does not want to harm herself or others, but when discussing the fact that she is not eating and that she can continue to lose weight, she says she does not care. To be clear, the context of this is we were talking about her not living much longer if she does not gain some weight and start eating and she tells me she does not care. She endorses numerous neurovegetative depressive symptoms. She has a long history of bipolar disorder with extensive inpatient and outpatient treatment. ASSESSMENT: Bipolar disorder, depressed. PLAN: The patient will be transferred to the behavioral unit once medically stabilized. Her long-term prognosis is guarded. She will be treated for her bipolar disorder. TRANSINT:[id number] Voice Confirmation ID: [id number] DOCUMENT ID: [id number] MAVERICK CARTER MD at 1406 CC: [id number] DICTATION DATE: 02/04/18 1509 CLOTH MERCERIZER BACK TENDER: 02/04/18 1647 DIS IN 02/04/18 [id number] [place] [address]
[2018-01-26 14:03] LABS: APPEARANCE HAZY (CLEAR); BILIRUBIN NEGATIVE (NEGATIVE); COLOR YELLOW (YELLOW); GLUCOSE NEGATIVE (NEGATIVE); KETONE NEGATIVE (NEGATIVE); NITRITE NEGATIVE (NEGATIVE); PROTEIN 2+ mg/dL (NEGATIVE); SPECIFIC GRAVITY 1.025 (1.005-1.020); UROBILINOGEN NORMAL (NORMAL)
[2018-01-26 14:08] LABS: UDS - AMPHET NEGATIVE QUAL (NEGATIVE); UDS - BARB NEGATIVE QUAL (NEGATIVE); UDS - BENZO NEGATIVE QUAL (NEGATIVE); UDS - COCAINE NEGATIVE QUAL (NEGATIVE); UDS - OPIATE NEGATIVE QUAL (NEGATIVE); UDS - PCP NEGATIVE QUAL (NEGATIVE); UDS - THC POSITIVE QUAL (NEGATIVE)
[2018-01-26 14:10] LABS: BASOPHILS 0.1 % (0-2); EOSINOPHILS 0 % (0-7); HEMATOCRIT 42.3 % (36.0-48.0); HEMOGLOBIN 15.3 g/dL (12-16); IMMATURE GRANULOCYTES 0.3 % (0-5); LYMPHOCYTES 12.5 % (15-50); MCH 33.2 pg (26.0-34.0); MCHC 36.2 g/dL (31.0-37.0); MCV 91.8 fL (80.0-100.0); MEAN PLATELET VOLUME 10.2 fL (7.4-10.4); MONOCYTES 5.7 % (2-11); NEUTROPHILS 81.4 % (40-80); PLATELET COUNT 298 10x3/uL (130-400); RBC 4.61 10x6/uL (4.00-5.40); RDW 12.9 % (11.5-14.5); WBC 15.1 10x3/uL (4.8-10.8)
[2018-01-26 14:14] LABS: AMORPHOUS SEDIMENT >1+ /lpf (NONE SEEN); BACTERIA MODERATE /hpf (NONE SEEN); EPITHELIAL CELLS 0-5 /hpf (0-5); RED CELLS - URINE 0-5 /hpf (0-5); WHITE CELLS - URINE 0-5 /hpf (0-5)
[2018-01-26 14:37] LABS: INR 1.11 (0.85-1.17); PROTIME 13.9 SECONDS (11.6-15.0)
[2018-01-26 14:39] LABS: D-DIMER-QUANTITATIVE 1.79 ug/mLFEU (0.20-0.54)
[2018-01-26 15:39] LABS: ALKALINE PHOSPHATASE 49 U/L (46-116); ALT (SGPT) 92 U/L (10-68); BILIRUBIN - TOTAL 0.89 mg/dL (0.2-1.3); CALC OSMOLALITY 296 mosm/kg (275-300); CALCIUM 9.2 mg/dL (8.5-10.1); CARBON DIOXIDE 16.2 mmol/L (21.0-32.0); CHLORIDE - SERUM 99 mmol/L (98-107); CREATININE - SERUM 1.9 mg/dL (0.6-1.3); POTASSIUM - SERUM 3.5 mmol/L (3.5-5.1); PROTEIN - SERUM 7.9 g/dL (6.4-8.2); SODIUM 133 mmol/L (136-145); UREA NITROGEN 76 mg/dL (7-18); eGFR NON AFRICAN AMERICAN 27 mL/min (90-120)
[2018-01-26 15:40] LABS: GLUCOSE 249 mg/dL (74-106)
[2018-01-26 15:55] LABS: CKMB 21.1 U/L (0.0-3.6); MAGNESIUM - SERUM 2.5 mg/dL (1.8-2.4)
[2018-01-26 15:57] LABS: CREATINE KINASE 933 UL (21-215)
[2018-01-26 15:59] LABS: TROPONIN-I 0.129 ng/mL (0.000-0.060)
[2018-01-26 19:27] LABS: CKMB 18.4 U/L (0.0-3.6); CREATINE KINASE 766 UL (21-215)
[2018-01-26 19:28] LABS: TROPONIN-I 0.123 ng/mL (0.000-0.060)
[2018-01-27] VITALS (25 sets, daily range): BP systolic 94–181; BP diastolic 50–100
[2018-01-27 01:45] LABS: CKMB 11.3 U/L (0.0-3.6); CREATINE KINASE 534 UL (21-215)
[2018-01-27 01:46] LABS: TROPONIN-I 0.116 ng/mL (0.000-0.060)
[2018-01-27 04:28] LABS: BASOPHILS 0.1 % (0-2); EOSINOPHILS 0 % (0-7); HEMATOCRIT 35.7 % (36.0-48.0); HEMOGLOBIN 12.2 g/dL (12-16); IMMATURE GRANULOCYTES 0.5 % (0-5); LYMPHOCYTES 16.7 % (15-50); MCHC 34.2 g/dL (31.0-37.0); MCV 93.7 fL (80.0-100.0); MEAN PLATELET VOLUME 9.9 fL (7.4-10.4); MONOCYTES 10.1 % (2-11); NEUTROPHILS 72.6 % (40-80); PLATELET COUNT 211 10x3/uL (130-400); RBC 3.81 10x6/uL (4.00-5.40); RDW 13.1 % (11.5-14.5); WBC 11.9 10x3/uL (4.8-10.8)
[2018-01-27 04:55] LABS: ALBUMIN 3.1 g/dL (3.4-5.0); ANION GAP 18.3 mmol/L (8-16); BILIRUBIN - TOTAL 0.41 mg/dL (0.2-1.3); CALCIUM 7.9 mg/dL (8.5-10.1); CARBON DIOXIDE 16.8 mmol/L (21.0-32.0); POTASSIUM - SERUM 3.1 mmol/L (3.5-5.1); PROTEIN - SERUM 6.2 g/dL (6.4-8.2)
[2018-01-27 04:56] LABS: CREATININE - SERUM 1.1 mg/dL (0.6-1.3)
[2018-01-27 07:51] LABS: CKMB 8.9 U/L (0.0-3.6); CREATINE KINASE 444 UL (21-215)
[2018-01-27 07:52] LABS: TROPONIN-I 0.103 ng/mL (0.000-0.060)
[2018-01-27] MEDS ORDERED: MEGACE40 MG PO (14:49)
[2018-01-27] MEDS ORDERED: BUPROPION HCL100 MG PO (14:49)
[2018-01-27] MEDS ORDERED: REQUIP1 MG PO (14:50)
[2018-01-27] MEDS ORDERED: DESERYL100 MG PO (14:50)
[2018-01-28] VITALS (25 sets, daily range): BP systolic 95–139; BP diastolic 48–104; Ht 172.7 cm; Wt 62.6 kg
[2018-01-29] VITALS (23 sets, daily range): BP systolic 107–158; BP diastolic 57–92
[2018-01-30] VITALS (25 sets, daily range): BP systolic 112–151; BP diastolic 55–99
[2018-01-30 04:34] LABS: BASOPHILS 0.1 % (0-2); EOSINOPHILS 3.2 % (0-7); HEMATOCRIT 31.2 % (36.0-48.0); HEMOGLOBIN 11.1 g/dL (12-16); IMMATURE GRANULOCYTES 0.4 % (0-5); LYMPHOCYTES 37.4 % (15-50); MCH 32.2 pg (26.0-34.0); MCHC 35.6 g/dL (31.0-37.0); MCV 90.4 fL (80.0-100.0); NEUTROPHILS 52.9 % (40-80); PLATELET COUNT 180 10x3/uL (130-400); RBC 3.45 10x6/uL (4.00-5.40); RDW 12.7 % (11.5-14.5); WBC 8.4 10x3/uL (4.8-10.8)
[2018-01-30 04:51] LABS: CARBON DIOXIDE 27.2 mmol/L (21.0-32.0); CHLORIDE - SERUM 106 mmol/L (98-107); CREATININE - SERUM 0.6 mg/dL (0.6-1.3); SODIUM 140 mmol/L (136-145); UREA NITROGEN 4 mg/dL (7-18); eGFR NON AFRICAN AMERICAN > 90 mL/min (90-120)
[2018-01-30 05:01] LABS: CALC OSMOLALITY 276 mosm/kg (275-300); GLUCOSE 112 mg/dL (74-106)
[2018-01-30 05:02] LABS: POTASSIUM - SERUM 2.4 mmol/L (3.5-5.1)
[2018-01-31] VITALS (15 sets, daily range): BP systolic 126–161; BP diastolic 55–87
[2018-01-31 04:27] LABS: BASOPHILS 0.1 % (0-2); EOSINOPHILS 2.8 % (0-7); HEMATOCRIT 31.7 % (36.0-48.0); HEMOGLOBIN 11.3 g/dL (12-16); IMMATURE GRANULOCYTES 0.5 % (0-5); LYMPHOCYTES 36.9 % (15-50); MCH 32.4 pg (26.0-34.0); MCHC 35.6 g/dL (31.0-37.0); MCV 90.8 fL (80.0-100.0); MEAN PLATELET VOLUME 10.1 fL (7.4-10.4); MONOCYTES 5.4 % (2-11); NEUTROPHILS 54.3 % (40-80); PLATELET COUNT 193 10x3/uL (130-400); RBC 3.49 10x6/uL (4.00-5.40); RDW 12.9 % (11.5-14.5)
[2018-01-31 04:30] LABS: CALC OSMOLALITY 269 mosm/kg (275-300); CALCIUM 7.2 mg/dL (8.5-10.1); CARBON DIOXIDE 26.6 mmol/L (21.0-32.0); CHLORIDE - SERUM 104 mmol/L (98-107); CREATININE - SERUM 0.6 mg/dL (0.6-1.3); GLUCOSE 114 mg/dL (74-106); POTASSIUM - SERUM 3.2 mmol/L (3.5-5.1); SODIUM 136 mmol/L (136-145); UREA NITROGEN 5 mg/dL (7-18); eGFR NON AFRICAN AMERICAN > 90 mL/min (90-120)
[2018-02-01 05:34] VITALS: BP 160/68
[2018-02-01 06:09] LABS: BASOPHILS 0 % (0-2); HEMATOCRIT 32.5 % (36.0-48.0); HEMOGLOBIN 11.1 g/dL (12-16); IMMATURE GRANULOCYTES 0.3 % (0-5); LYMPHOCYTES 35.6 % (15-50); MCH 31.4 pg (26.0-34.0); MCHC 34.2 g/dL (31.0-37.0); MCV 92.1 fL (80.0-100.0); MEAN PLATELET VOLUME 9.7 fL (7.4-10.4); MONOCYTES 6.6 % (2-11); NEUTROPHILS 54.5 % (40-80); PLATELET COUNT 199 10x3/uL (130-400); RBC 3.53 10x6/uL (4.00-5.40); RDW 13.1 % (11.5-14.5); WBC 7.7 10x3/uL (4.8-10.8)
[2018-02-01 06:23] LABS: CALC OSMOLALITY 273 mosm/kg (275-300); CARBON DIOXIDE 24.9 mmol/L (21.0-32.0); CHLORIDE - SERUM 105 mmol/L (98-107); CREATININE - SERUM 0.7 mg/dL (0.6-1.3); GLUCOSE 119 mg/dL (74-106); POTASSIUM - SERUM 3.5 mmol/L (3.5-5.1); SODIUM 138 mmol/L (136-145); UREA NITROGEN 5 mg/dL (7-18); eGFR NON AFRICAN AMERICAN 86 mL/min (90-120)
[2018-02-01 08:26] VITALS: BP 136/69
[2018-02-01 11:35] VITALS: BP 158/68
[2018-02-01 16:00] VITALS: BP 157/69
[2018-02-01 20:00] VITALS: BP 147/59
[2018-02-02] VITALS: BP 152/78
[2018-02-02 04:00] VITALS: BP 153/76
[2018-02-02 05:20] LABS: BASOPHILS 0.2 % (0-2); EOSINOPHILS 4.1 % (0-7); HEMATOCRIT 35.1 % (36.0-48.0); IMMATURE GRANULOCYTES 0.5 % (0-5); LYMPHOCYTES 40.1 % (15-50); MCH 31.7 pg (26.0-34.0); MCHC 34.2 g/dL (31.0-37.0); MCV 92.6 fL (80.0-100.0); MEAN PLATELET VOLUME 9.8 fL (7.4-10.4); MONOCYTES 8.4 % (2-11); NEUTROPHILS 46.7 % (40-80); PLATELET COUNT 224 10x3/uL (130-400); RBC 3.79 10x6/uL (4.00-5.40); RDW 13.1 % (11.5-14.5); WBC 6.7 10x3/uL (4.8-10.8)
[2018-02-02 05:42] LABS: ANION GAP 11.8 mmol/L (8-16); CALCIUM 8.5 mg/dL (8.5-10.1); CARBON DIOXIDE 24.9 mmol/L (21.0-32.0); CREATININE - SERUM 0.8 mg/dL (0.6-1.3); POTASSIUM - SERUM 3.7 mmol/L (3.5-5.1)
[2018-02-02 08:40] VITALS: BP 160/87
[2018-02-02 11:52] VITALS: BP 146/73
[2018-02-02 15:23] VITALS: BP 152/71
[2018-02-02 20:00] VITALS: BP 174/90
[2018-02-03] VITALS: BP 114/45
[2018-02-03 04:00] VITALS: BP 120/60
[2018-02-03 05:18] LABS: BASOPHILS 0.2 % (0-2); EOSINOPHILS 2.6 % (0-7); HEMOGLOBIN 11.4 g/dL (12-16); IMMATURE GRANULOCYTES 0.4 % (0-5); LYMPHOCYTES 41.7 % (15-50); MCH 31.8 pg (26.0-34.0); MCHC 34.5 g/dL (31.0-37.0); MCV 92.2 fL (80.0-100.0); MEAN PLATELET VOLUME 9.6 fL (7.4-10.4); NEUTROPHILS 47.1 % (40-80); PLATELET COUNT 214 10x3/uL (130-400); RBC 3.58 10x6/uL (4.00-5.40); WBC 8.2 10x3/uL (4.8-10.8)
[2018-02-03 05:27] LABS: CALC OSMOLALITY 272 mosm/kg (275-300); CARBON DIOXIDE 27.1 mmol/L (21.0-32.0); CHLORIDE - SERUM 103 mmol/L (98-107); CREATININE - SERUM 0.7 mg/dL (0.6-1.3); GLUCOSE 143 mg/dL (74-106); POTASSIUM - SERUM 3.9 mmol/L (3.5-5.1); SODIUM 136 mmol/L (136-145); eGFR NON AFRICAN AMERICAN 86 mL/min (90-120)
[2018-02-03 05:37] LABS: UREA NITROGEN 11 mg/dL (7-18)
[2018-02-03 08:55] VITALS: BP 112/79
[2018-02-03 13:20] VITALS: BP 122/76
[2018-02-03 16:50] VITALS: BP 148/70
[2018-02-03 21:17] VITALS: BP 135/52
[2018-02-04 00:28] VITALS: BP 96/47
[2018-02-04 04:07] VITALS: BP 122/59
[2018-02-04 05:15] LABS: BASOPHILS 0.2 % (0-2); HEMATOCRIT 31.2 % (36.0-48.0); HEMOGLOBIN 10.8 g/dL (12-16); IMMATURE GRANULOCYTES 0.7 % (0-5); LYMPHOCYTES 42.7 % (15-50); MCH 31.8 pg (26.0-34.0); MCHC 34.6 g/dL (31.0-37.0); MCV 91.8 fL (80.0-100.0); MEAN PLATELET VOLUME 9.6 fL (7.4-10.4); MONOCYTES 7.6 % (2-11); NEUTROPHILS 46.8 % (40-80); PLATELET COUNT 221 10x3/uL (130-400); WBC 8.6 10x3/uL (4.8-10.8)
[2018-02-04 05:32] LABS: ANION GAP 11.5 mmol/L (8-16); CALCIUM 8.2 mg/dL (8.5-10.1); CARBON DIOXIDE 25.9 mmol/L (21.0-32.0); POTASSIUM - SERUM 4.4 mmol/L (3.5-5.1)
[2018-02-04 05:36] LABS: CREATININE - SERUM 0.9 mg/dL (0.6-1.3)
[2018-02-04 07:00] VITALS: BP 119/62
[2018-02-04] MEDS ORDERED: LOVENOX60 MG/0.6 SC (16:13)
[2018-02-04] MEDS ORDERED: CORDARONE200 MG PO (16:14)
[2018-02-04] MEDS ORDERED: CARDIZEM60 MG PO (16:14)
[2018-02-04] MEDS ORDERED: ATIVAN1 MG PO (16:14)
[2018-02-04] MEDS ORDERED: FOLIC ACID1 MG PO (16:16)
[2018-02-04] MEDS ORDERED: VITAMIN B-1100 M1 PO (16:16)
[2018-02-04] MEDS ORDERED: ATIVAN2 MG/ML IV (16:16)
[2018-02-04 21:56] VITALS: BP 156/66
== END 2018-02-04 23:15 | disposition short-term general hospital (02) | DRG 308 ==
LOC: D.ER 13:16 → D.ICU 18:27 → D.EDHOLD 18:27 → D.M2 18:27 → D.ICU 20:19 → D.M2 01-31 11:52
PROVIDERS: Family Medicine; Internal Medicine Nephrology
DX: I48.1 Persistent atrial fibrillation (principal); E43 Unspecified severe protein-calorie malnutrition; G92 Toxic encephalopathy; J18.9 Pneumonia, unspecified organism; N17.9 Acute kidney failure, unspecified; N39.0 Urinary tract infection, site not specified; M62.82 Rhabdomyolysis; R00.0 Tachycardia, unspecified; D64.9 Anemia, unspecified; G24.01 Drug induced subacute dyskinesia; F31.9 Bipolar disorder, unspecified; E86.0 Dehydration; I25.10 Atherosclerotic heart disease of native coronary artery without angina pectoris; R73.9 Hyperglycemia, unspecified; E87.6 Hypokalemia

== ENCOUNTER 2018-02-04 22:41 | Inpatient (IN) | payer MEDICARE ==
[~2018-02-04] VITALS: Ht 172.7 cm; Wt 47.3 kg
--- NOTE | ~2018-02-04 | PN ---
PATIENT:MAINOR MANSFIELD MEDICAL RECORD: [id number] LOCATION:OSMIN Hartmann113 ADMISSION DATE: 02/04/18 PROGRESS NOTE DATE OF SERVICE: 02/12/2018 SUBJECTIVE: The patient's case was discussed with staff. She has no new complaint. OBJECTIVE: The patient is in good behavioral control with limited insight about her condition. She does tolerate her medicines well. ASSESSMENT: No change in diagnoses. PLAN: Brief supportive and educational interventions were made. Long-term prognosis is guarded. I am going to check a lithium level tomorrow along with a TSH. I will also start her on some Megace and she is having some difficulty with bowel movements. TRANSINT:[id number] Voice Confirmation ID: [id number] DOCUMENT ID: [id number] MAVERICK CARTER MD at 1301 CC: [id number] DICTATION DATE: 02/12/18 1459 ENGINEERING TECHNICAL WRITER: 02/12/18 1510 ADM IN [place] [id number] [place] [id number]
--- NOTE | ~2018-02-04 | PN ---
PATIENT:MAINOR MANSFIELD MEDICAL RECORD: [id number] LOCATION:OSMIN Hartmann113 ADMISSION DATE: 02/04/18 PROGRESS NOTE DATE OF SERVICE: 02/11/2018 SUBJECTIVE: The patient's case was discussed with staff. She has no new complaint. OBJECTIVE: The patient is in good behavioral control with limited insight about her condition. She engages in some attention seeking behaviors that are maladaptive, but it is nothing that would represent an acute risk to herself or others. ASSESSMENT: No change in diagnoses. PLAN: The patient is going to have her Seroquel increased slightly to assist with sleep consolidation and thought disorganization. I think she is less labile since I increased her lithium and I plan to check a lithium level in a day or two. TRANSINT:[id number] Voice Confirmation ID: [id number] DOCUMENT ID: [id number] MAVERICK CARTER MD at 1434 CC: [id number] DICTATION DATE: 02/11/18 1543 HAM MARKER: 02/11/18 1637 ADM IN [facility] [address] [place] [address]
--- NOTE | ~2018-02-04 | PSY ---
PATIENT NAME:MAINOR MANSFIELD MEDICAL RECORD: [id number] : 38 LOCATION:OSMIN Kilo1 ADMISSION DATE: 02/04/18 ACCOUNT: [id number] PSYCHIATRIC EVALUATION DATE OF EVALUATION: 02/05/18 IDENTIFYING DATA: The patient is 77 years old and she is admitted to the hospital on a voluntary basis. CHIEF COMPLAINT: Depression. HISTORY OF PRESENT ILLNESS: The patient initially was admitted to the medical wing of the hospital a few days ago because she was not taking her medicines and was not eating. She was found to be underweight and to have a urinary tract infection along with leukocytosis, dehydration and hypokalemia. She was also in atrial flutter. She was stabilized medically, but I was consulted because she has a history of bipolar disorder. The things that brought her to the hospital or at least the underlying problem that brought her to the hospital had not been corrected and that she is in the depressed phase of a bipolar illness. It was explained to her that she was going to if she did not eat and she said she really did not care. She did deny active intent to hurt herself. She is very anxious. She also has clear tardive dyskinesia from what I presume is long-term exposure to neuroleptics. She endorses numerous neurovegetative depressive symptoms and not only has the passive desire to , but is severely underweight at 5 feet 8 inches tall. She has not been seeing a psychiatrist recently. Her illness has been managed by her family doctor. PAST MEDICAL HISTORY: Significant for movements associated with tardive dyskinesia. She also has a history of glaucoma, diabetes and hypothyroidism. She has a history of atrial fibrillation, coronary artery disease and has had angioplasty and coronary artery stents placed. She has a history of bronchitis and also has a carotid stent. PAST PSYCHIATRIC HISTORY: Significant for extensive inpatient and outpatient treatment dating back decades. She has a long established diagnosis of bipolar disorder and has chronic trouble with both anxiety and depression. FAMILY PSYCHIATRIC HISTORY: Unknown. ALLERGIES: DEMEROL AND SCOPOLAMINE. CURRENT MEDICATIONS: Include amiodarone, Cardizem, Ativan, thiamine, folate, Betapace, Latuda, albuterol, Plavix, and aspirin. SOCIAL HISTORY: The patient is . She has adult children, particularly a son who is involved with her care. She has no history of drug or alcohol abuse, and despite her longstanding mental health problems she has functioned reasonably well socially and occupationally. When her illness is under control, she has done reasonably well, although again she has had ongoing problems for a long time. MENTAL STATUS EXAMINATION: The patient is awake, alert and oriented to person, place and somewhat to time and situation. Her mood is depressed. Her affect is constricted. Thought processes are circumstantial. Memory, concentration, and abstraction abilities are moderately impaired and she denies any active intent to harm herself or others as well as overt psychotic symptoms. ASSETS: Supportive family members. LIABILITIES: Limited insight. DIAGNOSTIC IMPRESSION: AXIS I: Bipolar disorder, depressed. AXIS II: None. AXIS III: Tardive dyskinesia, glaucoma, diabetes, hypothyroidism, coronary artery disease, cardiac arrhythmia. AXIS IV: Moderate stressors. AXIS V: Global assessment of functioning is 40. PLAN: At this time, the patient is admitted to the hospital secondary to severe depressive symptoms associated with a bipolar disorder. She will be comprehensively evaluated and treated with both mood stabilizing and antidepressant medications as deemed appropriate. I have stopped her Latuda and her Wellbutrin and will try different medications. The most acute problem today is her anxiety, which she is describing as severe and my objective independent observation of it is that it is severe. I am going to start her on Klonopin at a dose of 1 mg twice daily today and will add additional medications tomorrow. TRANSINT:[id number] Voice Confirmation ID: [id number] DOCUMENT ID: [id number] MAVERICK CARTER MD at 1203 CC: [id number] DICTATION DATE: 02/05/18 1447 FITNESS SALES ASSOCIATE: 02/05/18 1516 [facility] [address] [place] [address]
--- NOTE | ~2018-02-04 | PN ---
PATIENT:MAINOR MANSFIELD MEDICAL RECORD: [id number] LOCATION:OSMIN Hartmann112 ADMISSION DATE: 02/04/18 PROGRESS NOTE DATE OF SERVICE: 02/09/2018 SUBJECTIVE: The patient's case was discussed with staff. She has no new complaint. OBJECTIVE: The patient is in good behavioral control with limited insight about her condition. She tolerates her medicines well. ASSESSMENT: No change in diagnoses. PLAN: Current medicines and therapies have been reviewed and will be maintained. Long-term prognoses are guarded. She has a lithium level of 0.3 mEq. I am going to increase the dose of the lithium to 600 mg a day as she has tolerated this starting dose well. TRANSINT:[id number] Voice Confirmation ID: [id number] DOCUMENT ID: [id number] MAVERICK CARTER MD at 1118 CC: [id number] DICTATION DATE: 02/09/18 1146 CLIENT SERVICE ADMINISTRATOR: 02/09/18 1339 ADM IN [place] [id number] [place] [address]
--- NOTE | ~2018-02-04 | PN ---
PATIENT:MAINOR MANSFIELD MEDICAL RECORD: [id number] LOCATION:OSMIN Hartmann113 ADMISSION DATE: 02/04/18 PROGRESS NOTE DATE OF SERVICE: 02/23/2018 SUBJECTIVE: The patient's case was discussed with staff. She has no new complaint. OBJECTIVE: The patient is displaying a depressed mood. She has pretty limited insight about her condition. She still is not eating adequately. ASSESSMENT: No change in diagnoses. PLAN: The patient had a little bit better breakfast today. She ate 80% of breakfast and drank 360 cc of fluid, but that required an almost herculean effort on the part of the nursing staff to get her to do that. Efforts are being made to feed her and to encourage her and most of the time it just simply is not working out. She denies that she is depressed, but she is endorsing lots of depressive symptoms. She is taking an antidepressant and I am going to go ahead and increase the dose of that a little bit today. I am also going to check baseline labs and her lithium level to make sure she is not getting into any metabolic difficulties. Obviously, if she does not begin eating, her prognosis is exceedingly poor. TRANSINT:[id number] Voice Confirmation ID: [id number] DOCUMENT ID: [id number] MAVERICK CARTER MD at 1326 CC: [id number] DICTATION DATE: 02/23/18 1323 SHUTTLE FINAL INSPECTOR: 02/23/18 1434 DIS IN 02/24/18 [facility] [address] [place] [address]
--- NOTE | ~2018-02-04 | PN ---
PATIENT:MAINOR MANSFIELD MEDICAL RECORD: [id number] LOCATION:[facility] ADMISSION DATE: 02/04/18 PROGRESS NOTE DATE OF SERVICE: 02/06/2018 SUBJECTIVE: The patient's case was discussed with staff. She has no new complaint. OBJECTIVE: The patient is calmer than yesterday, but very paranoid. She is still not eating very adequately, but she is eating a little better. ASSESSMENT: No change in diagnoses. PLAN: The patient will be started on lithium at a dose of 150 mg twice daily. She has a longstanding diagnosis of bipolar disorder. TRANSINT:[id number] Voice Confirmation ID: [id number] DOCUMENT ID: [id number] MAVERICK CARTER MD at 1323 CC: [id number] DICTATION DATE: 02/06/18 1213 VP PRODUCTION: 02/06/18 1337 ADM IN [place] [id number] [place] [id number]
--- NOTE | ~2018-02-04 | PN ---
PATIENT:MAINOR MANSFIELD MEDICAL RECORD: [id number] LOCATION:[facility] ADMISSION DATE: 02/04/18 PROGRESS NOTE DATE OF SERVICE: 02/15/2018 SUBJECTIVE: The patient's case was discussed with staff. She has no new complaint. OBJECTIVE: The patient is in better behavioral control. She is still difficult to redirect at times. She has pretty limited insight about her situation. She has no active thoughts of harming herself or others. ASSESSMENT: No change in diagnoses. PLAN: The patient will have a basic check of her labs. I am going to check her renal function and electrolytes. I am also going to check a lithium level, a TSH and a hemoglobin A1c. I had an extensive conversation over 30 minutes today with her son and I think he has a good understanding of her situation and he wants her to return to independent living, but prefers to go to a rehab stay for physical therapy. I will refer her for that stay and would anticipate she can be transitioned there soon. TRANSINT:[id number] Voice Confirmation ID: [id number] DOCUMENT ID: [id number] MAVERICK CARTER MD at 1223 CC: [id number] DICTATION DATE: 02/15/18 1503 COMPUTER FIELD TECHNICIAN: 02/15/18 1514 ADM IN [place] [id number] [place] [id number]
--- NOTE | ~2018-02-04 | PN ---
PATIENT:MAINOR MANSFIELD MEDICAL RECORD: [id number] LOCATION:[facility] ADMISSION DATE: 02/04/18 PROGRESS NOTE DATE OF SERVICE: 02/13/2018 SUBJECTIVE: The patient's case was discussed with staff. She has no new complaint. OBJECTIVE: The patient denies intent to harm herself or others. She actually has gained some weight since she has been here, which is encouraging. She continues to have a depressed mood, but I see less mood lability and her lithium level is therapeutic at 0.6 mEq. ASSESSMENT: No change in diagnoses. PLAN: The patient still is hypothyroid and her Synthroid has been increased. Her long-term prognosis is guarded. TRANSINT:[id number] Voice Confirmation ID: [id number] DOCUMENT ID: [id number] MAVERICK CARTER MD at 1053 CC: [id number] DICTATION DATE: 02/13/18 1442 COURTROOM DEPUTY: 02/13/18 1515 ADM IN [place] [address] [place] [address]
--- NOTE | ~2018-02-04 | PN ---
PATIENT:MAINOR MANSFIELD MEDICAL RECORD: [id number] LOCATION:[facility] ADMISSION DATE: 02/04/18 PROGRESS NOTE DATE OF SERVICE: 02/07/2018 SUBJECTIVE: The patient's case was discussed with staff. She has no new complaint. OBJECTIVE: The patient is oriented to person, place and situation. She is only mildly mistaken about the date. She says her anxiety is better. She has tolerated her initial dose of lithium well. She continues to have disorganized thought processes and I am going to treat that with Seroquel. ASSESSMENT: No change in diagnoses. PLAN: The patient will be started on Seroquel at a dose of 50 mg at bedtime. Her long-term prognosis is guarded. Supportive and educational interventions were made. TRANSINT:[id number] Voice Confirmation ID: [id number] DOCUMENT ID: [id number] MAVERICK CARTER MD at 1350 CC: [id number] DICTATION DATE: 02/07/18 1335 HEAD MACHINE FEEDER: 02/07/18 1352 ADM IN [place] [id number] [place] [address]
--- NOTE | ~2018-02-04 | PN ---
PATIENT:MAINOR MANSFIELD MEDICAL RECORD: [id number] LOCATION:[facility] ADMISSION DATE: 02/04/18 PROGRESS NOTE DATE OF SERVICE: 02/18/2018 SUBJECTIVE: The patient's case was discussed with staff. She has no new complaint. OBJECTIVE: The patient is in good behavioral control. She has pretty limited insight about her condition. She is not showing any evidence of acute aggression or significant mood lability. Her lithium level is therapeutic. She is hyponatremic for reasons that are unclear. ASSESSMENT: No change in diagnoses. PLAN: Supportive and educational interventions were made. Long-term prognosis is guarded. TRANSINT:[id number] Voice Confirmation ID: [id number] DOCUMENT ID: [id number] MAVERICK CARTER MD at 1406 CC: [id number] DICTATION DATE: 02/18/18 1144 ANTENNA DESIGN ENGINEER: 02/18/18 1204 ADM IN [place] [address] [place] [address]
--- NOTE | ~2018-02-04 | PN ---
PATIENT:MAINOR MANSFIELD MEDICAL RECORD: [id number] LOCATION:[facility] ADMISSION DATE: 02/04/18 PROGRESS NOTE DATE OF SERVICE: 02/08/2018 SUBJECTIVE: The patient's case was discussed with staff. She has no new complaint. OBJECTIVE: The patient fell last night. She had wet the bed and the staff had changed her and the bed. She had to urinate again and was concerned she was going to wet the bed again and in her haste to get up she fell. She has an injury above her left eye. Neuro checks are being done. No abnormalities have been noted so far. Unfortunately, she now has developed an E. coli infection in her urine and is on isolation precautions, which does distress her. She continues to say she is anxious, but she does not look anxious. I have started her on antipsychotic and mood stabilizing medications. ASSESSMENT: No change in diagnoses. PLAN: The patient will have a lithium level checked tomorrow morning. Current medicines are going to be maintained. TRANSINT:[id number] Voice Confirmation ID: [id number] DOCUMENT ID: [id number] MAVERICK CARTER MD at 1129 CC: [id number] DICTATION DATE: 02/08/18 1414 CLOTH STRETCHER: 02/08/18 1425 ADM IN [place] [address] [place] [id number]
--- NOTE | ~2018-02-04 | PN ---
PATIENT:MAINOR MANSFIELD MEDICAL RECORD: [id number] LOCATION:[facility] ADMISSION DATE: 02/04/18 PROGRESS NOTE DATE OF SERVICE: 02/10/2018 SUBJECTIVE: The patient's case was discussed with staff. She has no new complaint. OBJECTIVE: The patient denies intent to harm herself or others. She generally tolerates her medicines well. She is depressed, but currently does not have any suicidal thoughts. ASSESSMENT: No change in diagnoses. PLAN: Current medicines will be maintained. Her long-term prognosis is guarded. TRANSINT:[id number] Voice Confirmation ID: [id number] DOCUMENT ID: [id number] MAVERICK CARTER MD at 1459 CC: [id number] DICTATION DATE: 02/10/18 1137 SUPERVISOR MICROFILM DUPLICATING UNIT: 02/10/18 1617 ADM IN [place] [id number] [place] [address]
--- NOTE | ~2018-02-04 | PN ---
PATIENT:MAINOR MANSFIELD MEDICAL RECORD: [id number] LOCATION:[facility] ADMISSION DATE: 02/04/18 PROGRESS NOTE DATE OF SERVICE: 02/16/2018 SUBJECTIVE: The patient's case was discussed with staff. She has no new complaint. OBJECTIVE: The patient is calm and cooperative. She has significant cognitive impairment. She has no thoughts of harming herself or others. Her lithium level is nicely therapeutic without significant side effects. Unfortunately, her TSH is still high, as well as her sodium being low. I have some ideas about how I would address this, but I will leave this to the gas appliance repairer to manage and I will stick with the psychiatric issues. ASSESSMENT: No change in diagnoses. PLAN: I anticipate the patient can be transitioned out of the hospital soon. I believe her urinary tract infection is either treated or soon will be adequately treated. TRANSINT:[id number] Voice Confirmation ID: [id number] DOCUMENT ID: [id number] MAVERICK CARTER MD at 1045 CC: [id number] DICTATION DATE: 02/16/18 1250 HOME DESIGNER: 02/16/18 1300 ADM IN [facility] [address] [place] [address]
--- NOTE | ~2018-02-04 | PN ---
PATIENT:MAINOR MANSFIELD MEDICAL RECORD: [id number] LOCATION:[facility] ADMISSION DATE: 02/04/18 PROGRESS NOTE DATE OF SERVICE: 02/19/2018 SUBJECTIVE: The patient's case was discussed with staff. She has no new complaint. OBJECTIVE: The patient is in good behavioral control with limited insight about her condition. She does tolerate her medicines well. Eye contact is fair. Concentration is fair. Supportive and educational interventions were made. The patient is showing improvement behaviorally, but she still is not eating well. She is taking Megace. If her appetite, does not improve her prognosis is quite guarded. ASSESSMENT: No change in diagnoses. PLAN: I anticipate the patient can be transitioned to the rehabilitation facility soon. TRANSINT:[id number] Voice Confirmation ID: [id number] DOCUMENT ID: [id number] MAVERICK CARTER MD at 1339 CC: [id number] DICTATION DATE: 02/19/18 1435 RETAIL BRANCH MANAGER: 02/19/18 1444 ADM IN [place] [id number] [place] [id number]
--- NOTE | ~2018-02-04 | PN ---
PATIENT:MAINOR MANSFIELD MEDICAL RECORD: [id number] LOCATION:[facility] ADMISSION DATE: 02/04/18 PROGRESS NOTE DATE OF SERVICE: 02/20/2018 SUBJECTIVE: The patient's case was discussed with staff. She has no new complaint. OBJECTIVE: The patient is in good behavioral control with limited insight about her condition. She does tolerate her medicines well. Eye contact is fair. ASSESSMENT: No change in diagnoses. PLAN: Brief supportive and educational interventions were made. Long-term prognosis is guarded. TRANSINT:[id number] Voice Confirmation ID: [id number] DOCUMENT ID: [id number] MAVERICK CARTER MD at 1234 CC: [id number] DICTATION DATE: 02/20/18 1414 RETAIL MAINTENANCE TECHNICIAN: 02/20/18 1421 ADM IN [place] [id number] [place] [address]
--- NOTE | ~2018-02-04 | PN ---
PATIENT:MAINOR MANSFIELD MEDICAL RECORD: [id number] LOCATION:[facility] ADMISSION DATE: 02/04/18 PROGRESS NOTE DATE OF SERVICE: 02/14/2018 SUBJECTIVE: The patient's case was discussed with staff. She has no new complaint. OBJECTIVE: The patient denies intent to harm herself or others. She generally tolerates her medicines well. Eye contact is fair. Concentration is fair. ASSESSMENT: No change in diagnoses. PLAN: The patient will hopefully be transitioned to a rehab unit soon. Her long-term prognosis is guarded. She still is not eating adequately and is taking Megace for appetite stimulation. TRANSINT:[id number] Voice Confirmation ID: [id number] DOCUMENT ID: [id number] MAVERICK CARTER MD at 1322 CC: [id number] DICTATION DATE: 02/14/18 1210 STEMMER MACHINE: 02/14/18 1244 ADM IN [place] [id number] [place] [address]
--- NOTE | ~2018-02-04 | DS ---
PATIENT:MAINOR MANSFIELD :38 MEDICAL RECORD: [id number] DISCHARGE SUMMARY ADMISSION DATE: 02/04/18 DISCHARGE DATE: 02/24/18 IDENTIFYING DATA: The patient is 77 years old and she was admitted to the behavioral unit because of depression. The patient has a history of bipolar disorder; has not been eating properly; has been depressed; and has developed urinary tract infections, atrial flutter, and other medical problems from which she is generally declining. She also has obvious neuroleptic-induced tardive dyskinesia. She was subsequently admitted to the behavioral unit because of her depression. HOSPITAL COURSE: The patient was treated with antidepressant medications and lithium. She did achieve a therapeutic level of the lithium. She continued to be profoundly depressed. She was not eating or drinking. The staff was having to feed her, but even then she would not eat. She denied that she wanted to hurt herself, but was not really making any real progress towards recovery. Efforts were made with walking her in physical therapy without any result. The patient was not progressing in treatment, when she developed a pneumonia and had to be transferred to the medical floor. DISCHARGE DIAGNOSES: AXIS I: Bipolar disorder, depressed. AXIS II: None. AXIS III: Pneumonia, tardive dyskinesia, glaucoma, diabetes, hypothyroidism, coronary artery disease, cardiac arrhythmia. AXIS IV: Moderate stressors. AXIS V: Global assessment of functioning is 35. PLAN: At the time of discharge, the patient was very disorganized, clearly depressed, was not eating or drinking as she should, and then had developed a pneumonia. I think her long-term prognosis is very poor if she does not begin eating. Her underlying bipolar disorder was better in that she had no mood lability and had a therapeutic level of her lithium, but she is still profoundly depressed. Once her pneumonia is treated, I would be happy to look at her and see if there is anything else that could be done for her here. TRANSINT:[id number] Voice Confirmation ID: [id number] DOCUMENT ID: [id number] MAVERICK CARTER MD at 1435 CC: [id number] DICTATION DATE: 02/28/18 1342 MIRROR FINISHING MACHINE OPERATOR: 02/28/18 1353 DIS IN 02/24/18 [facility] [address] [place] [address]
--- NOTE | ~2018-02-04 | PN ---
PATIENT:MAINOR MANSFIELD MEDICAL RECORD: [id number] LOCATION:[facility] ADMISSION DATE: 02/04/18 PROGRESS NOTE DATE OF SERVICE: 02/21/2018 SUBJECTIVE: The patient's case was discussed with staff. She has no new complaint. OBJECTIVE: The patient continues to not eat very well. I have spoken with her again about this, she says she is doing the best she can. She does have a depressed mood, but she denies neurovegetative depressive symptoms. ASSESSMENT: No change in diagnoses. PLAN: The patient's mood lability that she had when she was first admitted is better. I think that is related to the lithium. The situation with her not eating is critical and I am going to prescribe an antidepressant in addition to the appetite stimulating medicine. I do not know if this will help, but weighing the relative risks and benefits, I think clearly it has less risk relative to the benefit. TRANSINT:[id number] Voice Confirmation ID: [id number] DOCUMENT ID: [id number] MAVERICK CARTER MD at 1222 CC: [id number] DICTATION DATE: 02/21/18 1259 SOFTBALL PLAYER: 02/21/18 1309 ADM IN [facility] [address] [place] [address]
--- NOTE | ~2018-02-04 | PN ---
PATIENT:MAINOR MANSFIELD MEDICAL RECORD: [id number] LOCATION:[facility] ADMISSION DATE: 02/04/18 PROGRESS NOTE DATE OF SERVICE: 02/22/2018 SUBJECTIVE: The patient's case was discussed with staff. She has no new complaint. OBJECTIVE: The patient is significantly better. She has no thoughts of harming herself or others. She is tolerating her medicines well. Unfortunately, she is not eating very well. I continued to speak with her about this and have now recommended that she be fed. She is agreeable to this and says she will try to eat better. ASSESSMENT: No change in diagnoses. PLAN: I am going to increase the patient's Effexor from 75 mg a day to 100. I am not sure that depression is much of a factor in what I am seeing, but given her condition, she absolutely must eat or she is just simply not going to have a good outcome. She is 104 pounds and 5 feet 8 inches tall. She does not have much in the way of leeway regarding her weight. TRANSINT:[id number] Voice Confirmation ID: [id number] DOCUMENT ID: [id number] MAVERICK CARTER MD at 1243 CC: [id number] DICTATION DATE: 02/22/18 1305 FIRER WATERTENDER: 02/22/18 1315 ADM IN [place] [id number] [place] [address]
--- NOTE | ~2018-02-04 | PN ---
PATIENT:MAINOR MANSFIELD MEDICAL RECORD: [id number] LOCATION:[facility] ADMISSION DATE: 02/04/18 PROGRESS NOTE DATE OF SERVICE: 02/17/2018 SUBJECTIVE: The patient's case was discussed with staff. She has no new complaint. OBJECTIVE: The patient is in good behavioral control. She is not showing mood lability. She has no thoughts of harming herself. The patient is still not eating completely adequately. She is not losing weight, but she is only eating about half of what is presented to her. I have spoken with her about this repeatedly. She says she is doing the best she can and I am sure she is. I do not think she has some kind of an underlying eating disorder like anorexia or bulimia, but I am not sure how to explain her loss of appetite. I am giving her Megace to stimulate her appetite. ASSESSMENT: No change in diagnoses. PLAN: The patient is walking with physical therapy. I think she would benefit from additional work that could be done on a rehab unit. I have spoken with her about this, she is in favor of it, so is her son. TRANSINT:[id number] Voice Confirmation ID: [id number] DOCUMENT ID: [id number] MAVERICK CARTER MD at 1059 CC: [id number] DICTATION DATE: 02/17/18 1105 MATERIAL EXPEDITOR: 02/17/18 1120 ADM IN [place] [id number] [place] [address]
[~2018-02-04 22:41] MED LIST changes: +ATIVAN2 MG/ML IV; +BUPROPION HCL100 MG PO; +CARDIZEM60 MG PO; +CORDARONE200 MG PO; +DESERYL100 MG PO; +FOLIC ACID1 MG PO; +LOVENOX60 MG/0.6 SC; +MEGACE40 MG PO; +REQUIP1 MG PO; +VITAMIN B-1100 M1 PO
[2018-02-05 00:54] LABS: APPEARANCE CLEAR (CLEAR); BILIRUBIN NEGATIVE (NEGATIVE); COLOR YELLOW (YELLOW); GLUCOSE NEGATIVE (NEGATIVE); KETONE NEGATIVE (NEGATIVE); NITRITE NEGATIVE (NEGATIVE); PROTEIN NEGATIVE (NEGATIVE); SPECIFIC GRAVITY 1.005 (1.005-1.020); UROBILINOGEN NORMAL (NORMAL)
[2018-02-05 00:55] LABS: BACTERIA FEW /hpf (NONE SEEN); EPITHELIAL CELLS 0-5 /hpf (0-5); RED CELLS - URINE 0-5 /hpf (0-5); WHITE CELLS - URINE 0-5 /hpf (0-5)
[2018-02-05 06:43] LABS: CHOL - HDL RATIO 3.4 ratio (2.3-4.1); THYROID STIMULATING HORMONE 5.26 uIU/mL (0.36-3.74)
[2018-02-05 08:49] VITALS: BP 148/74
[2018-02-05 14:19] VITALS: Ht 172.7 cm; Wt 47.3 kg
[2018-02-05 21:22] VITALS: BP 109/47
[2018-02-06 07:31] LABS: FOLATE (FOLIC ACID) - SERUM >20.0 ng/mL (>3.0); RAPID PLASMA REAGIN Non Reactive (Non Reactive); VITAMIN D 25 HYDROXY 33.4 ng/mL (30.0-100.0)
[2018-02-06 08:05] VITALS: BP 119/67
[2018-02-06 13:16] LABS: BASOPHILS 0.2 % (0-2); EOSINOPHILS 1.2 % (0-7); HEMATOCRIT 34.4 % (36.0-48.0); HEMOGLOBIN 11.7 g/dL (12-16); IMMATURE GRANULOCYTES 0.7 % (0-5); LYMPHOCYTES 30.3 % (15-50); MCH 32.4 pg (26.0-34.0); MCV 95.3 fL (80.0-100.0); MEAN PLATELET VOLUME 9.6 fL (7.4-10.4); NEUTROPHILS 60.6 % (40-80); PLATELET COUNT 280 10x3/uL (130-400); RBC 3.61 10x6/uL (4.00-5.40); RDW 13.3 % (11.5-14.5); WBC 10.1 10x3/uL (4.8-10.8)
[2018-02-06 13:31] LABS: ANION GAP 11.1 mmol/L (8-16); CALCIUM 8.3 mg/dL (8.5-10.1); CARBON DIOXIDE 26.5 mmol/L (21.0-32.0); POTASSIUM - SERUM 4.6 mmol/L (3.5-5.1)
[2018-02-06 20:55] VITALS: BP 136/47
[2018-02-07 11:03] VITALS: BP 125/60
[2018-02-07 13:35] LABS: BASOPHILS 0.2 % (0-2); EOSINOPHILS 1.4 % (0-7); HEMOGLOBIN 10.8 g/dL (12-16); IMMATURE GRANULOCYTES 0.5 % (0-5); LYMPHOCYTES 36.2 % (15-50); MCH 32.1 pg (26.0-34.0); MCHC 33.8 g/dL (31.0-37.0); MCV 95.2 fL (80.0-100.0); MEAN PLATELET VOLUME 9.6 fL (7.4-10.4); MONOCYTES 5.8 % (2-11); NEUTROPHILS 55.9 % (40-80); PLATELET COUNT 266 10x3/uL (130-400); RBC 3.36 10x6/uL (4.00-5.40); RDW 13.4 % (11.5-14.5); WBC 9.4 10x3/uL (4.8-10.8)
[2018-02-07 14:01] LABS: ALBUMIN 2.7 g/dL (3.4-5.0); ALKALINE PHOSPHATASE 46 U/L (46-116); ALT (SGPT) 55 U/L (10-68); BILIRUBIN - TOTAL 0.23 mg/dL (0.2-1.3); CALC OSMOLALITY 265 mosm/kg (275-300); CALCIUM 8.3 mg/dL (8.5-10.1); CARBON DIOXIDE 26.7 mmol/L (21.0-32.0); CHLORIDE - SERUM 97 mmol/L (98-107); CKMB 1.2 U/L (0.0-3.6); CREATINE KINASE 96 UL (21-215); GLUCOSE 196 mg/dL (74-106); POTASSIUM - SERUM 4.4 mmol/L (3.5-5.1); PROTEIN - SERUM 5.5 g/dL (6.4-8.2); SODIUM 129 mmol/L (136-145); TROPONIN-I < 0.017 ng/mL (0.000-0.060); UREA NITROGEN 19 mg/dL (7-18); eGFR NON AFRICAN AMERICAN 57 mL/min (90-120)
[2018-02-07 20:05] VITALS: BP 97/60
[2018-02-08 09:30] VITALS: BP 130/68
[2018-02-08 10:31] VITALS: BP 130/68
[2018-02-08 20:35] VITALS: BP 122/43
[2018-02-09 05:40] LABS: BASOPHILS 0.3 % (0-2); EOSINOPHILS 1.6 % (0-7); HEMATOCRIT 34.1 % (36.0-48.0); HEMOGLOBIN 11.6 g/dL (12-16); IMMATURE GRANULOCYTES 0.5 % (0-5); LYMPHOCYTES 32.8 % (15-50); MCH 32.7 pg (26.0-34.0); MCV 96.1 fL (80.0-100.0); MEAN PLATELET VOLUME 9.9 fL (7.4-10.4); MONOCYTES 8.2 % (2-11); NEUTROPHILS 56.6 % (40-80); PLATELET COUNT 260 10x3/uL (130-400); RBC 3.55 10x6/uL (4.00-5.40); RDW 13.6 % (11.5-14.5)
[2018-02-09 05:52] LABS: ALBUMIN 2.6 g/dL (3.4-5.0); ANION GAP 10.8 mmol/L (8-16); BILIRUBIN - TOTAL 0.22 mg/dL (0.2-1.3); CALCIUM 8.8 mg/dL (8.5-10.1); CARBON DIOXIDE 23.2 mmol/L (21.0-32.0); CREATININE - SERUM 0.9 mg/dL (0.6-1.3); GENTAMICIN - TROUGH 0.3 ug/mL (0.5-2.0); PROTEIN - SERUM 6.1 g/dL (6.4-8.2)
[2018-02-09 09:37] VITALS: BP 115/67
[2018-02-09 19:19] VITALS: BP 127/53
[2018-02-10 08:00] VITALS: BP 140/66
[2018-02-10 19:25] VITALS: BP 120/44
[2018-02-11 09:47] VITALS: BP 123/68
[2018-02-11 19:34] VITALS: BP 142/62
[2018-02-12 08:00] VITALS: BP 152/59
[2018-02-12 22:05] VITALS: BP 125/52
[2018-02-12 22:07] VITALS: BP 125/52
[2018-02-13 09:00] VITALS: BP 145/64
[2018-02-13 19:06] VITALS: BP 134/45
[2018-02-14 10:35] VITALS: BP 148/69
[2018-02-14 22:38] VITALS: BP 144/72
[2018-02-15 10:25] VITALS: BP 129/60
[2018-02-15 16:46] LABS: ANION GAP 12.7 mmol/L (8-16); CALCIUM 9.2 mg/dL (8.5-10.1); CARBON DIOXIDE 24.9 mmol/L (21.0-32.0); POTASSIUM - SERUM 4.6 mmol/L (3.5-5.1); THYROID STIMULATING HORMONE 6.97 uIU/mL (0.36-3.74)
[2018-02-15 21:17] VITALS: BP 130/64
[2018-02-16 10:13] VITALS: BP 134/66
[2018-02-16 21:12] VITALS: BP 124/60; BP 129/75
[2018-02-17 09:29] VITALS: BP 137/59
[2018-02-17 11:10] LABS: ANION GAP 7.6 mmol/L (8-16); CALCIUM 8.9 mg/dL (8.5-10.1); CARBON DIOXIDE 27.9 mmol/L (21.0-32.0); POTASSIUM - SERUM 4.5 mmol/L (3.5-5.1)
[2018-02-17 19:27] VITALS: BP 127/50
[2018-02-18 08:00] VITALS: BP 132/51
[2018-02-18 19:17] VITALS: BP 132/59
[2018-02-19 08:00] VITALS: BP 121/58
[2018-02-19 18:43] LABS: ANION GAP 10.3 mmol/L (8-16); CALCIUM 9.2 mg/dL (8.5-10.1); CARBON DIOXIDE 24.4 mmol/L (21.0-32.0); CREATININE - SERUM 1.1 mg/dL (0.6-1.3); POTASSIUM - SERUM 4.7 mmol/L (3.5-5.1)
[2018-02-19 20:15] VITALS: BP 139/54
[2018-02-20 08:27] VITALS: BP 140/66
[2018-02-20 19:53] VITALS: BP 126/59
[2018-02-21 10:21] VITALS: BP 104/79
[2018-02-21 22:29] VITALS: BP 96/69
[2018-02-22 07:15] LABS: ANION GAP 10.4 mmol/L (8-16); CARBON DIOXIDE 25.9 mmol/L (21.0-32.0); CREATININE - SERUM 1.3 mg/dL (0.6-1.3); POTASSIUM - SERUM 4.3 mmol/L (3.5-5.1)
[2018-02-22 08:54] VITALS: BP 140/62
[2018-02-22 20:13] VITALS: BP 120/45
[2018-02-23 08:00] VITALS: BP 121/50
[2018-02-23 13:45] LABS: BASOPHILS 0.2 % (0-2); EOSINOPHILS 2.2 % (0-7); HEMATOCRIT 32.6 % (36.0-48.0); HEMOGLOBIN 11.1 g/dL (12-16); IMMATURE GRANULOCYTES 0.3 % (0-5); LYMPHOCYTES 10.1 % (15-50); MCH 32.9 pg (26.0-34.0); MCV 96.7 fL (80.0-100.0); MEAN PLATELET VOLUME 10.1 fL (7.4-10.4); NEUTROPHILS 79.2 % (40-80); PLATELET COUNT 222 10x3/uL (130-400); RBC 3.37 10x6/uL (4.00-5.40); RDW 13.6 % (11.5-14.5); WBC 12.7 10x3/uL (4.8-10.8)
[2018-02-23 14:04] LABS: ALBUMIN 2.7 g/dL (3.4-5.0); ANION GAP 7.8 mmol/L (8-16); BILIRUBIN - DIRECT 0.06 mg/dL (0.00-0.30); BILIRUBIN - INDIRECT 0.12 mg/dL (0.00-1.00); BILIRUBIN - TOTAL 0.18 mg/dL (0.2-1.3); CALCIUM 8.8 mg/dL (8.5-10.1); CARBON DIOXIDE 27.5 mmol/L (21.0-32.0); CREATININE - SERUM 1.3 mg/dL (0.6-1.3); POTASSIUM - SERUM 4.3 mmol/L (3.5-5.1); PROTEIN - SERUM 6.3 g/dL (6.4-8.2); THYROID STIMULATING HORMONE 5.41 uIU/mL (0.36-3.74)
[2018-02-23 20:23] VITALS: BP 112/50
[2018-02-24 04:11] LABS: BASOPHILS 0.1 % (0-2); EOSINOPHILS 1.3 % (0-7); IMMATURE GRANULOCYTES 0.3 % (0-5); LYMPHOCYTES 6.3 % (15-50); MCH 33.1 pg (26.0-34.0); MCHC 34.3 g/dL (31.0-37.0); MCV 96.7 fL (80.0-100.0); MEAN PLATELET VOLUME 10.2 fL (7.4-10.4); MONOCYTES 5.2 % (2-11); NEUTROPHILS 86.8 % (40-80); PLATELET COUNT 221 10x3/uL (130-400); RBC 3.62 10x6/uL (4.00-5.40); RDW 13.7 % (11.5-14.5); WBC 15.3 10x3/uL (4.8-10.8)
[2018-02-24 04:26] LABS: ALBUMIN 2.7 g/dL (3.4-5.0); ANION GAP 9.2 mmol/L (8-16); BILIRUBIN - TOTAL 0.25 mg/dL (0.2-1.3); CALCIUM 8.6 mg/dL (8.5-10.1); CARBON DIOXIDE 27.4 mmol/L (21.0-32.0); CREATININE - SERUM 1.1 mg/dL (0.6-1.3); POTASSIUM - SERUM 4.6 mmol/L (3.5-5.1); PROTEIN - SERUM 6.5 g/dL (6.4-8.2)
[2018-02-24 04:39] LABS: CKMB 1.9 U/L (0.0-3.6); CREATINE KINASE 132 UL (21-215); TROPONIN-I 0.034 ng/mL (0.000-0.060)
[2018-02-24 05:44] LABS: APPEARANCE CLEAR (CLEAR); BILIRUBIN NEGATIVE (NEGATIVE); COLOR YELLOW (YELLOW); GLUCOSE NEGATIVE (NEGATIVE); KETONE NEGATIVE (NEGATIVE); NITRITE NEGATIVE (NEGATIVE); PROTEIN NEGATIVE (NEGATIVE); SPECIFIC GRAVITY 1.015 (1.005-1.020); UROBILINOGEN NORMAL (NORMAL)
[2018-02-24 08:00] VITALS: BP 114/57
[2018-02-24] MEDS ORDERED: MEGACE40 MG PO (09:28)
[2018-02-24] MEDS ORDERED: NITROQUICK0.4 MG SL (09:29)
[2018-02-24] MEDS ORDERED: MOBIC7.5 MG PO (09:30)
[2018-02-24] MEDS ORDERED: LITHIUM CARBON300 MG PO (09:30)
[2018-02-24] MEDS ORDERED: EFFEXOR37.5 MG PO (09:32)
[2018-02-24] MEDS ORDERED: COLACE100 MG PO (09:32)
[2018-02-24] MEDS ORDERED: DULCOLAX10 MG/SUPP RC (09:32)
[2018-02-24] MEDS ORDERED: SENNA8.6 MG PO (09:33)
[2018-02-24] MEDS ORDERED: SYNTHROID125 MCG PO (09:34)
[2018-02-24] MEDS ORDERED: GLUCOPHAGE500 MG PO (09:34)
[2018-02-24 10:55] LABS: CKMB 1.9 U/L (0.0-3.6); CREATINE KINASE 120 UL (21-215)
== END 2018-02-24 11:46 | disposition short-term general hospital (02) | DRG 885 ==
LOC: D.PSYCH 22:41
PROVIDERS: Family Medicine; Psychiatry & Neurology Psychiatry
DX: F31.30 Bipolar disorder, current episode depressed, mild or moderate severity, unspecified (principal); N39.0 Urinary tract infection, site not specified; E87.1 Hypo-osmolality and hyponatremia; F41.8 Other specified anxiety disorders; G24.01 Drug induced subacute dyskinesia; H40.9 Unspecified glaucoma; E11.9 Type 2 diabetes mellitus without complications; I48.2 Chronic atrial fibrillation; I10 Essential (primary) hypertension; I25.10 Atherosclerotic heart disease of native coronary artery without angina pectoris; K59.09 Other constipation; E03.9 Hypothyroidism, unspecified; R63.0 Anorexia; B95.2 Enterococcus as the cause of diseases classified elsewhere; B96.20 Unspecified Escherichia coli [E. coli] as the cause of diseases classified elsewhere; M47.819 Spondylosis without myelopathy or radiculopathy, site unspecified

== ENCOUNTER 2018-02-24 09:54 | Inpatient (IN) | payer MEDICARE ==
[~2018-02-24] VITALS: Ht 172.7 cm; Wt 64.4 kg
--- NOTE | ~2018-02-24 | CN ---
PATIENT NAME:FRANCOISE WILBURN MEDICAL RECORD: [id number] : 38 LOCATION:[facility]34 ADMIT DATE: 02/24/18 ACCOUNT: [id number] CONSULTING PHYSICIAN: MAVERICK CARTER MD REFERRING PHYSICIAN: JOSE GAMEZ MD DATE OF CONSULTATION: 03/08/2018 INTERIM HISTORY Francoise Wilburn is very well known to me from previous clinical contact. She was hospitalized on the behavioral unit for a couple of weeks prior to becoming acutely ill and developing pneumonia. At that time, she was transferred to the medical floor. She continues to be profoundly depressed and is not eating. She is very somatic. She is also cognitively impaired. ASSESSMENT: Bipolar, depressed. PLAN: The patient's condition is grave. If she does not begin eating, she certainly is not going to live much longer. I am recommending that she be transferred back to the behavioral unit for ongoing treatment of her bipolar disorder. TRANSINT:[id number] Voice Confirmation ID: [id number] DOCUMENT ID: [id number] MAVERICK CARTER MD at 1053 CC: [id number] DICTATION DATE: 03/08/18 1343 CRACK OFF PERSON: 03/08/18 1352 ADM IN [place] [id number] [place] [address]
--- NOTE | ~2018-02-24 | CN ---
PATIENT NAME:MAINOR WILBURN MEDICAL RECORD: [id number] : 38 LOCATION:D.[facility]34 ADMIT DATE: 02/24/18 ACCOUNT: [id number] CONSULTING PHYSICIAN: GOOD HESS MD REFERRING PHYSICIAN: JULIETA GAMEZ MD DATE OF CONSULTATION: 02/24/2018 CONSULT REQUESTING PHYSICIAN: Julieta Gamez MD REASON FOR CONSULTATION: Pneumonia, right lower lobe; dyspnea. HISTORY OF PRESENT ILLNESS: Ms. Wilburn is a 77-year-old female who was admitted on 26 of January with CHF and atrial fibrillation. The patient was transferred to rehab for the rehabilitation. Today, she was brought up again with coughing, wheezing, and shortness of breath. Chest radiograph showed infiltrate, right lower lobe. REVIEW OF THE SYSTEMS: Mainly in the history of present illness. PAST MEDICAL HISTORY: 1. Anxiety and depression. 2. Coronary artery disease, status post stent placement. 3. Glaucoma. 4. History of bronchitis. 5. History of recreational drug abuse. PAST SURGICAL HISTORY: She had carotid stent placement. ALLERGIES: SHE IS ALLERGIC TO DEMEROL AND SCOPOLAMINE. MEDICATIONS: Medesen was reviewed. PERSONAL AND SOCIAL HISTORY: The patient has remote history of smoking, but she is using marijuana. She is a nondrinker. FAMILY HISTORY: Not known. PHYSICAL EXAMINATION: GENERAL: The patient is now lying comfortably in bed. She is not in acute distress. HEENT: Conjunctivae are pink. Sclerae are not icteric. NECK: Neck is supple. No JVD. CHEST: There are bilateral crackles and wheeze on forceful expiration. HEART: Rhythm regular. Normal regular. Normal sound. No murmur. ABDOMEN: Abdomen is soft. Bowel sounds present. No hepatosplenomegaly. RECTAL: Deferred. EXTREMITIES: No cyanosis. No clubbing. No pedal edema. SKIN: The skin is warm. Normal turgor. CENTRAL NERVOUS SYSTEM: The patient is awake and alert, but she is looking very emaciated. LABORATORY DATA: CBC; The WBC is 15.3, hemoglobin is 12, hematocrit 35, and the platelet count is 221. Chemistry; sodium 131, potassium 4.6, BUN is 29, creatinine is 1.1, and glucose 210. CONSULT REPORT [id number] MAINOR WILBURN IMPRESSION: 1. Megmz-ho-hubowwf hypoxic respiratory failure. 2. Pneumonia, right lower lobe, most likely hospital-acquired pneumonia as the patient is hospitalized since 26 of January. 3. Acute exacerbation of COPD. 4. History of congestive heart failure. 5. Generalized debility. RECOMMENDATION: 1. Continue cefepime. I will add Levaquin and vancomycin to cover for HAP and gram-negative yonathan as well as questionable MRSA. 2. Start methylprednisolone IV. 3. Albuterol/ipratropium nebulizer. 4. Brovana and budesonide nebulizer. 5. Check the alpha-1 level. 6. Followup labs and chest radiograph. I discussed with the patient's son. Dr. Gamez, thank you for involving me in the care of Ms. Wilburn. TRANSINT:[id number] Voice Confirmation ID: [id number] DOCUMENT ID: [id number] GOOD HESS MD at 1301 CC: [id number] DICTATION DATE: 02/24/181809 DIGITAL PROOFING AND PLATEMAKER: 02/24/181999 DIS IN 03/12/18 [facility] [address] [place] [address]
[~2018-02-24 09:54] MED LIST changes: +COLACE100 MG PO; +DULCOLAX10 MG/SUPP RC; +EFFEXOR37.5 MG PO; +GLUCOPHAGE500 MG PO; +LITHIUM CARBON300 MG PO; +MOBIC7.5 MG PO; +NITROQUICK0.4 MG SL; +SENNA8.6 MG PO; +SYNTHROID125 MCG PO
[2018-02-24 20:00] VITALS: BP 142/79
[2018-02-25 05:36] VITALS: BP 144/54
[2018-02-25 06:01] LABS: BASOPHILS 0.1 % (0-2); EOSINOPHILS 0 % (0-7); HEMATOCRIT 29.6 % (36.0-48.0); HEMOGLOBIN 9.8 g/dL (12-16); IMMATURE GRANULOCYTES 0.3 % (0-5); LYMPHOCYTES 6.4 % (15-50); MCHC 33.1 g/dL (31.0-37.0); MCV 96.7 fL (80.0-100.0); MONOCYTES 2.1 % (2-11); NEUTROPHILS 91.1 % (40-80); PLATELET COUNT 203 10x3/uL (130-400); RBC 3.06 10x6/uL (4.00-5.40); RDW 13.7 % (11.5-14.5); WBC 14.6 10x3/uL (4.8-10.8)
[2018-02-25 06:17] LABS: ANION GAP 10.2 mmol/L (8-16); CALCIUM 8.1 mg/dL (8.5-10.1); CARBON DIOXIDE 26.3 mmol/L (21.0-32.0); CREATININE - SERUM 1.1 mg/dL (0.6-1.3); POTASSIUM - SERUM 4.5 mmol/L (3.5-5.1)
[2018-02-25 06:37] VITALS: BP 90/56; BMI 15.8
[2018-02-25 09:21] VITALS: BP 143/61
[2018-02-25 11:57] VITALS: BP 113/68
[2018-02-25 15:30] VITALS: Ht 172.7 cm; Wt 64.4 kg
[2018-02-25 17:49] VITALS: BP 98/58
[2018-02-25 20:00] VITALS: BP 149/65
[2018-02-26 06:34] LABS: % SATURATION 23 % (15-55); IRON 57 ug/dl (35-150); TOTAL IRON BIND CAPACITY 245 ug/dl (260-445); UNSAT IRON BIND CAPACITY 188 ug/dl (150-375)
[2018-02-26 10:30] VITALS: BP 155/74
[2018-02-26 13:24] VITALS: BP 122/56
[2018-02-26 22:52] LABS: CALCIUM 8.2 mg/dL (8.5-10.1); CARBON DIOXIDE 23.7 mmol/L (21.0-32.0); CREATININE - SERUM 1.3 mg/dL (0.6-1.3); POTASSIUM - SERUM 4.7 mmol/L (3.5-5.1)
[2018-02-27] VITALS: BP 156/68
[2018-02-27 04:00] VITALS: BP 162/77
[2018-02-27 07:11] LABS: BASOPHILS 0.1 % (0-2); EOSINOPHILS 0 % (0-7); HEMATOCRIT 30.1 % (36.0-48.0); HEMOGLOBIN 10.2 g/dL (12-16); IMMATURE GRANULOCYTES 0.9 % (0-5); LYMPHOCYTES 10.2 % (15-50); MCH 32.2 pg (26.0-34.0); MCHC 33.9 g/dL (31.0-37.0); MEAN PLATELET VOLUME 10.8 fL (7.4-10.4); MONOCYTES 6.4 % (2-11); NEUTROPHILS 82.4 % (40-80); PLATELET COUNT 220 10x3/uL (130-400); RBC 3.17 10x6/uL (4.00-5.40); WBC 14.8 10x3/uL (4.8-10.8)
[2018-02-27 07:47] LABS: ALBUMIN 2.2 g/dL (3.4-5.0); ANION GAP 11.5 mmol/L (8-16); BILIRUBIN - DIRECT 0.07 mg/dL (0.00-0.30); BILIRUBIN - INDIRECT 0.25 mg/dL (0.00-1.00); BILIRUBIN - TOTAL 0.32 mg/dL (0.2-1.3); CREATININE - SERUM 1.2 mg/dL (0.6-1.3); POTASSIUM - SERUM 4.5 mmol/L (3.5-5.1); PROTEIN - SERUM 5.9 g/dL (6.4-8.2); VANCOMYCIN - TROUGH 30.6 ug/mL (10.0-20.0)
[2018-02-27 09:56] VITALS: BP 149/83
[2018-02-27 13:28] VITALS: BP 108/69
[2018-02-27 16:40] VITALS: BP 158/74
[2018-02-28 04:18] LABS: BASOPHILS 0.1 % (0-2); EOSINOPHILS 0.3 % (0-7); HEMATOCRIT 29.2 % (36.0-48.0); IMMATURE GRANULOCYTES 1.5 % (0-5); LYMPHOCYTES 14.3 % (15-50); MCH 32.2 pg (26.0-34.0); MCHC 34.2 g/dL (31.0-37.0); MCV 93.9 fL (80.0-100.0); MEAN PLATELET VOLUME 10.3 fL (7.4-10.4); MONOCYTES 11.7 % (2-11); NEUTROPHILS 72.1 % (40-80); PLATELET COUNT 232 10x3/uL (130-400); RBC 3.11 10x6/uL (4.00-5.40); RDW 12.9 % (11.5-14.5); WBC 14.1 10x3/uL (4.8-10.8)
[2018-02-28 04:35] LABS: ANION GAP 10.8 mmol/L (8-16); CALCIUM 7.7 mg/dL (8.5-10.1); CARBON DIOXIDE 24.3 mmol/L (21.0-32.0); CREATININE - SERUM 0.9 mg/dL (0.6-1.3); POTASSIUM - SERUM 4.1 mmol/L (3.5-5.1)
[2018-02-28 05:16] VITALS: BP 156/65
[2018-02-28 16:25] VITALS: BP 158/76
[2018-02-28 20:40] VITALS: BP 160/86
[2018-02-28 23:50] VITALS: BP 125/76
[2018-03-01 05:19] LABS: BASOPHILS 0.1 % (0-2); EOSINOPHILS 0.5 % (0-7); HEMATOCRIT 28.2 % (36.0-48.0); HEMOGLOBIN 9.8 g/dL (12-16); IMMATURE GRANULOCYTES 2.2 % (0-5); LYMPHOCYTES 14.9 % (15-50); MCH 32.2 pg (26.0-34.0); MCHC 34.8 g/dL (31.0-37.0); MCV 92.8 fL (80.0-100.0); MONOCYTES 11.1 % (2-11); NEUTROPHILS 71.2 % (40-80); PLATELET COUNT 212 10x3/uL (130-400); RBC 3.04 10x6/uL (4.00-5.40); RDW 13.1 % (11.5-14.5); WBC 13.6 10x3/uL (4.8-10.8)
[2018-03-01 05:51] VITALS: BP 160/80
[2018-03-01 06:12] LABS: ANION GAP 12.5 mmol/L (8-16); CALCIUM 7.7 mg/dL (8.5-10.1); CARBON DIOXIDE 22.7 mmol/L (21.0-32.0); CREATININE - SERUM 0.9 mg/dL (0.6-1.3); POTASSIUM - SERUM 4.2 mmol/L (3.5-5.1)
[2018-03-01 08:18] VITALS: BP 139/74
[2018-03-01 13:10] VITALS: BP 191/67
[2018-03-01 16:40] VITALS: BP 165/70
[2018-03-01 17:48] LABS: APPEARANCE HAZY (CLEAR); BILIRUBIN NEGATIVE (NEGATIVE); COLOR RED (YELLOW); GLUCOSE NEGATIVE (NEGATIVE); KETONE NEGATIVE (NEGATIVE); NITRITE NEGATIVE (NEGATIVE); PROTEIN 1+ mg/dL (NEGATIVE); SPECIFIC GRAVITY 1.015 (1.005-1.020); UROBILINOGEN NORMAL (NORMAL)
[2018-03-01 17:49] LABS: BACTERIA FEW /hpf (NONE SEEN); EPITHELIAL CELLS 0-5 /hpf (0-5); RED CELLS - URINE >50 /hpf (0-5); WHITE CELLS - URINE 0-5 /hpf (0-5)
[2018-03-01 20:55] VITALS: BP 174/74
[2018-03-02 06:30] LABS: BASOPHILS 0.1 % (0-2); EOSINOPHILS 0.1 % (0-7); HEMATOCRIT 28.1 % (36.0-48.0); HEMOGLOBIN 9.8 g/dL (12-16); IMMATURE GRANULOCYTES 2.9 % (0-5); LYMPHOCYTES 15.9 % (15-50); MCH 32.1 pg (26.0-34.0); MCHC 34.9 g/dL (31.0-37.0); MCV 92.1 fL (80.0-100.0); MEAN PLATELET VOLUME 9.6 fL (7.4-10.4); MONOCYTES 8.1 % (2-11); NEUTROPHILS 72.9 % (40-80); PLATELET COUNT 229 10x3/uL (130-400); RBC 3.05 10x6/uL (4.00-5.40); RDW 13.1 % (11.5-14.5)
[2018-03-02 06:31] LABS: WBC 17.8 10x3/uL (4.8-10.8)
[2018-03-02 06:49] LABS: ANION GAP 13.9 mmol/L (8-16); CALCIUM 7.7 mg/dL (8.5-10.1); CARBON DIOXIDE 21.2 mmol/L (21.0-32.0); CREATININE - SERUM 0.8 mg/dL (0.6-1.3); POTASSIUM - SERUM 4.1 mmol/L (3.5-5.1)
[2018-03-02 11:01] VITALS: BP 106/63
[2018-03-02 15:11] VITALS: BP 169/79
[2018-03-02 21:30] VITALS: BP 137/76
[2018-03-03 00:50] VITALS: BP 144/66
[2018-03-03 05:15] VITALS: BP 141/66
[2018-03-03 06:39] LABS: BASOPHILS 0.1 % (0-2); EOSINOPHILS 0.8 % (0-7); HEMATOCRIT 27.3 % (36.0-48.0); HEMOGLOBIN 9.5 g/dL (12-16); LYMPHOCYTES 24.7 % (15-50); MCH 32.2 pg (26.0-34.0); MCHC 34.8 g/dL (31.0-37.0); MCV 92.5 fL (80.0-100.0); MEAN PLATELET VOLUME 9.9 fL (7.4-10.4); NEUTROPHILS 62.4 % (40-80); PLATELET COUNT 244 10x3/uL (130-400); RBC 2.95 10x6/uL (4.00-5.40); RDW 13.5 % (11.5-14.5)
[2018-03-03 06:45] LABS: WBC 13.1 10x3/uL (4.8-10.8)
[2018-03-03 06:47] LABS: CALC OSMOLALITY 272 mosm/kg (275-300); CALCIUM 7.4 mg/dL (8.5-10.1); CARBON DIOXIDE 22.9 mmol/L (21.0-32.0); CHLORIDE - SERUM 101 mmol/L (98-107); CREATININE - SERUM 0.6 mg/dL (0.6-1.3); GLUCOSE 150 mg/dL (74-106); POTASSIUM - SERUM 3.8 mmol/L (3.5-5.1); SODIUM 135 mmol/L (136-145); UREA NITROGEN 13 mg/dL (7-18); eGFR NON AFRICAN AMERICAN > 90 mL/min (90-120)
[2018-03-03 21:50] VITALS: BP 116/70
[2018-03-04 05:15] VITALS: BP 103/57
[2018-03-04 06:11] LABS: BASOPHILS 0.1 % (0-2); EOSINOPHILS 0.5 % (0-7); HEMATOCRIT 29.6 % (36.0-48.0); HEMOGLOBIN 10.3 g/dL (12-16); IMMATURE GRANULOCYTES 2.1 % (0-5); LYMPHOCYTES 23.6 % (15-50); MCH 32.2 pg (26.0-34.0); MCHC 34.8 g/dL (31.0-37.0); MCV 92.5 fL (80.0-100.0); MEAN PLATELET VOLUME 9.5 fL (7.4-10.4); MONOCYTES 6.4 % (2-11); NEUTROPHILS 67.3 % (40-80); RDW 13.7 % (11.5-14.5)
[2018-03-04 06:16] LABS: PLATELET COUNT 295 10x3/uL (130-400); WBC 16.4 10x3/uL (4.8-10.8)
[2018-03-04 06:27] LABS: CALC OSMOLALITY 264 mosm/kg (275-300); CALCIUM 7.3 mg/dL (8.5-10.1); CARBON DIOXIDE 24.3 mmol/L (21.0-32.0); CHLORIDE - SERUM 99 mmol/L (98-107); CREATININE - SERUM 0.6 mg/dL (0.6-1.3); GLUCOSE 147 mg/dL (74-106); POTASSIUM - SERUM 3.5 mmol/L (3.5-5.1); SODIUM 131 mmol/L (136-145); UREA NITROGEN 10 mg/dL (7-18); eGFR NON AFRICAN AMERICAN > 90 mL/min (90-120)
[2018-03-04 08:49] VITALS: BP 122/74
[2018-03-04 10:14] LABS: ALP - ISO (ALP) 59 IU/L (39-117); ALP - ISO (BONE) FRACTION 33 % (14-68); ALP - ISO (LIVER) FRACTION 61 % (18-85); ALP - ISO(INTESTINAL) FRACTION 6 % (0-18)
[2018-03-04 12:04] VITALS: BP 120/72
[2018-03-04 20:00] VITALS: BP 164/76
[2018-03-05 04:00] VITALS: BP 104/72
[2018-03-05 07:30] LABS: BASOPHILS 0 % (0-2); EOSINOPHILS 0.3 % (0-7); HEMATOCRIT 29.5 % (36.0-48.0); HEMOGLOBIN 10.3 g/dL (12-16); IMMATURE GRANULOCYTES 1.7 % (0-5); LYMPHOCYTES 21.7 % (15-50); MCH 32.4 pg (26.0-34.0); MCHC 34.9 g/dL (31.0-37.0); MCV 92.8 fL (80.0-100.0); MEAN PLATELET VOLUME 9.5 fL (7.4-10.4); MONOCYTES 5.1 % (2-11); NEUTROPHILS 71.2 % (40-80); PLATELET COUNT 306 10x3/uL (130-400); RBC 3.18 10x6/uL (4.00-5.40); RDW 13.7 % (11.5-14.5); WBC 16.8 10x3/uL (4.8-10.8)
[2018-03-05 07:38] LABS: CALC OSMOLALITY 266 mosm/kg (275-300); CALCIUM 7.5 mg/dL (8.5-10.1); CARBON DIOXIDE 25.5 mmol/L (21.0-32.0); CHLORIDE - SERUM 100 mmol/L (98-107); CREATININE - SERUM 0.6 mg/dL (0.6-1.3); GLUCOSE 147 mg/dL (74-106); POTASSIUM - SERUM 3.6 mmol/L (3.5-5.1); SODIUM 131 mmol/L (136-145); eGFR NON AFRICAN AMERICAN > 90 mL/min (90-120)
[2018-03-05 07:39] LABS: UREA NITROGEN 14 mg/dL (7-18)
[2018-03-05 08:26] VITALS: BP 116/77
[2018-03-05 12:42] VITALS: BP 126/60
[2018-03-05 16:35] VITALS: BP 118/59
[2018-03-05 22:27] VITALS: BP 112/71
[2018-03-06 05:08] VITALS: BP 153/71
[2018-03-06 08:43] VITALS: BP 154/66
[2018-03-06 12:40] VITALS: BP 137/60
[2018-03-06 16:46] VITALS: BP 90/54
[2018-03-06 21:01] VITALS: BP 107/73
[2018-03-07 04:30] VITALS: BP 128/74
[2018-03-07 09:10] VITALS: BP 147/61
[2018-03-07 11:58] VITALS: BP 156/60
[2018-03-07 17:36] VITALS: BP 145/74
[2018-03-07 20:00] VITALS: BP 150/90
[2018-03-08 06:26] VITALS: BP 156/75
[2018-03-08 07:06] LABS: BASOPHILS 0.1 % (0-2); EOSINOPHILS 0.8 % (0-7); HEMOGLOBIN 9.9 g/dL (12-16); IMMATURE GRANULOCYTES 0.7 % (0-5); LYMPHOCYTES 21.8 % (15-50); MCH 32.2 pg (26.0-34.0); MCHC 34.1 g/dL (31.0-37.0); MCV 94.5 fL (80.0-100.0); MEAN PLATELET VOLUME 9.1 fL (7.4-10.4); MONOCYTES 4.7 % (2-11); NEUTROPHILS 71.9 % (40-80); PLATELET COUNT 311 10x3/uL (130-400); RBC 3.07 10x6/uL (4.00-5.40); RDW 14.9 % (11.5-14.5); WBC 13.7 10x3/uL (4.8-10.8)
[2018-03-08 07:11] LABS: CALC OSMOLALITY 270 mosm/kg (275-300); CARBON DIOXIDE 25.2 mmol/L (21.0-32.0); CHLORIDE - SERUM 102 mmol/L (98-107); CREATININE - SERUM 0.7 mg/dL (0.6-1.3); GLUCOSE 144 mg/dL (74-106); POTASSIUM - SERUM 3.9 mmol/L (3.5-5.1); SODIUM 135 mmol/L (136-145); UREA NITROGEN 8 mg/dL (7-18); eGFR NON AFRICAN AMERICAN 86 mL/min (90-120)
[2018-03-08 08:48] VITALS: BP 152/66
[2018-03-08 12:30] VITALS: BP 136/83
[2018-03-08 16:56] VITALS: BP 134/76
[2018-03-08 22:31] VITALS: BP 125/63
[2018-03-09 04:00] VITALS: BP 131/64
[2018-03-09 09:13] VITALS: BP 141/72
[2018-03-09 20:00] VITALS: BP 146/73
[2018-03-09 23:45] VITALS: BP 158/67
[2018-03-10 04:00] VITALS: BP 146/71
[2018-03-10 06:19] LABS: BASOPHILS 0.1 % (0-2); EOSINOPHILS 1.4 % (0-7); HEMATOCRIT 30.8 % (36.0-48.0); HEMOGLOBIN 10.5 g/dL (12-16); IMMATURE GRANULOCYTES 0.5 % (0-5); LYMPHOCYTES 16.4 % (15-50); MCH 32.7 pg (26.0-34.0); MCHC 34.1 g/dL (31.0-37.0); MEAN PLATELET VOLUME 9.1 fL (7.4-10.4); MONOCYTES 5.7 % (2-11); NEUTROPHILS 75.9 % (40-80); PLATELET COUNT 305 10x3/uL (130-400); RBC 3.21 10x6/uL (4.00-5.40); RDW 15.2 % (11.5-14.5)
[2018-03-10 06:52] LABS: CALC OSMOLALITY 269 mosm/kg (275-300); CALCIUM 8.4 mg/dL (8.5-10.1); CARBON DIOXIDE 23.5 mmol/L (21.0-32.0); CHLORIDE - SERUM 101 mmol/L (98-107); CREATININE - SERUM 0.7 mg/dL (0.6-1.3); POTASSIUM - SERUM 4.3 mmol/L (3.5-5.1); SODIUM 133 mmol/L (136-145); UREA NITROGEN 9 mg/dL (7-18); eGFR NON AFRICAN AMERICAN 86 mL/min (90-120)
[2018-03-10 07:03] LABS: GLUCOSE 193 mg/dL (74-106)
[2018-03-10 09:10] VITALS: BP 139/72
[2018-03-10 20:23] VITALS: BP 155/84
[2018-03-11 04:00] VITALS: BP 120/66
[2018-03-11 08:08] VITALS: BP 141/74
[2018-03-11 13:40] VITALS: BP 122/56
[2018-03-11 14:49] LABS: ALBUMIN 2.3 g/dL (3.4-5.0); ANION GAP 9.6 mmol/L (8-16); BILIRUBIN - TOTAL 0.2 mg/dL (0.2-1.3); CALCIUM 8.3 mg/dL (8.5-10.1); CARBON DIOXIDE 24.9 mmol/L (21.0-32.0); POTASSIUM - SERUM 4.5 mmol/L (3.5-5.1); PROTEIN - SERUM 5.4 g/dL (6.4-8.2)
[2018-03-11] MEDS ORDERED: MEGACE40 MG PO (15:03)
[2018-03-11] MEDS ORDERED: BROVANA15 MCG/2 M INH (15:04)
[2018-03-11] MEDS ORDERED: PLAVIX75 MG PO (15:05)
[2018-03-11 15:06] LABS: CREATININE - SERUM 0.9 mg/dL (0.6-1.3)
[2018-03-11] MEDS ORDERED: LOPRESSOR25 MG PO (15:06)
[2018-03-11] MEDS ORDERED: LITHIUM CI8 MEQ/5 ML PO ×2 (15:07→15:08)
[2018-03-11 20:00] VITALS: BP 136/56
[2018-03-12 05:47] VITALS: BP 125/54
[2018-03-12 09:13] VITALS: BP 141/47
[2018-03-12 12:28] VITALS: BP 36/56
== END 2018-03-12 16:11 | DRG 177 ==
LOC: D.MS 09:54 → D.SDCHOLD 03-04 16:30 → D.MS 03-04 16:31
PROVIDERS: Family Medicine; Internal Medicine Pulmonary Disease
DX: J69.0 Pneumonitis due to inhalation of food and vomit (principal); I63.9 Cerebral infarction, unspecified; J96.21 Acute and chronic respiratory failure with hypoxia; I50.33 Acute on chronic diastolic (congestive) heart failure; E43 Unspecified severe protein-calorie malnutrition; R40.2314 Coma scale, best motor response, none, 24 hours or more after hospital admission; R40.2214 Coma scale, best verbal response, none, 24 hours or more after hospital admission; E87.1 Hypo-osmolality and hyponatremia; J98.11 Atelectasis; Z68.1 Body mass index [BMI] 19.9 or less, adult; F31.89 Other bipolar disorder; G81.91 Hemiplegia, unspecified affecting right dominant side; J15.6 Pneumonia due to other Gram-negative bacteria; J15.212 Pneumonia due to Methicillin resistant Staphylococcus aureus; R40.2144 Coma scale, eyes open, spontaneous, 24 hours or more after hospital admission; E11.9 Type 2 diabetes mellitus without complications; I69.391 Dysphagia following cerebral infarction; R13.12 Dysphagia, oropharyngeal phase; I69.320 Aphasia following cerebral infarction; F41.8 Other specified anxiety disorders; I25.10 Atherosclerotic heart disease of native coronary artery without angina pectoris; J43.9 Emphysema, unspecified; Y95 Nosocomial condition; Z95.5 Presence of coronary angioplasty implant and graft; H40.9 Unspecified glaucoma; R53.81 Other malaise; I48.91 Unspecified atrial fibrillation; G24.01 Drug induced subacute dyskinesia; G47.00 Insomnia, unspecified; K59.00 Constipation, unspecified; D64.9 Anemia, unspecified; I27.20 Pulmonary hypertension, unspecified; I08.1 Rheumatic disorders of both mitral and tricuspid valves; E03.9 Hypothyroidism, unspecified; R29.810 Facial weakness

== ENCOUNTER 2018-02-27 18:52 | Emergency (ER) | payer MEDICARE ==
[~2018-02-27] VITALS: Ht 172.7 cm; Wt 54.7 kg
[2018-02-27 19:01] VITALS: Ht 172.7 cm; Wt 54.7 kg
[2018-02-27 19:52] LABS: BASOPHILS 0.1 % (0-2); EOSINOPHILS 0 % (0-7); HEMATOCRIT 29.8 % (36.0-48.0); HEMOGLOBIN 10.3 g/dL (12-16); IMMATURE GRANULOCYTES 1.2 % (0-5); MCH 32.5 pg (26.0-34.0); MCHC 34.6 g/dL (31.0-37.0); MONOCYTES 9.2 % (2-11); NEUTROPHILS 77.5 % (40-80); PLATELET COUNT 218 10x3/uL (130-400); RBC 3.17 10x6/uL (4.00-5.40); RDW 12.9 % (11.5-14.5); WBC 16.1 10x3/uL (4.8-10.8)
[2018-02-27 20:00] VITALS: BP 158/78
[2018-02-27 20:15] LABS: APTT 26.8 SECONDS (22.8-39.4); INR 1.1 (0.85-1.17); PROTIME 13.8 SECONDS (11.6-15.0)
[2018-02-27 20:20] LABS: ALBUMIN 2.3 g/dL (3.4-5.0); ANION GAP 12.2 mmol/L (8-16); BILIRUBIN - TOTAL 0.24 mg/dL (0.2-1.3); CALCIUM 7.7 mg/dL (8.5-10.1); POTASSIUM - SERUM 4.2 mmol/L (3.5-5.1); PROTEIN - SERUM 5.8 g/dL (6.4-8.2)
[2018-02-27 21:05] VITALS: BP 167/77
== END 2018-02-27 21:05 | disposition home or self-care (01) ==
LOC: D.ER 18:52 → D.EDHOLD 20:53 → D.ER 20:53
PROVIDERS: Family Medicine
DX: G24.01 Drug induced subacute dyskinesia (principal); E11.9 Type 2 diabetes mellitus without complications; Z86.79 Personal history of other diseases of the circulatory system

== ENCOUNTER 2019-11-25 18:37 | Inpatient (IN) | payer MEDICARE ==
[~2019-11-25] VITALS: Ht 172.7 cm; Wt 62.1 kg
[~2019-11-25 18:37] MED LIST changes: +BROVANA15 MCG/2 M INH; +LITHIUM CI8 MEQ/5 ML PO; +LOPRESSOR25 MG PO
--- NOTE | 2019-11-25 19:30 | NUR ---
PATIENT ARRIVED ABOUT 1800 VIA ABULANCE FROM [facility] ER, SUICIDAL STATEMENTS AT [facility], CODE WORD IS 3064, CODE STATUS IS DNR, CALM AND COOPERATIVE ON ARRIVAL, ORIENTED TO UNIT, PHYSICIAN AWARE OF ARRIVAL, PATIENT SIGNED CONSENTS.
[2019-11-25 19:49] VITALS: BP 174/71
[2019-11-26] MEDS ORDERED: PRADAXA150 MG PO (00:59)
[2019-11-26] MEDS ORDERED: BISOPROLOL PO (00:59)
[2019-11-26] MEDS ORDERED: GEODON20 MG PO (01:00)
[2019-11-26] MEDS ORDERED: XALATAN 0.0052.5 ML EACH EYE (01:00)
[2019-11-26] MEDS ORDERED: REMERON15 MG PO (01:00)
[2019-11-26] MEDS ORDERED: LEVOXYL75 MCG PO (01:01)
[2019-11-26] MEDS ORDERED: ATIVAN1 MG PO (01:02)
[2019-11-26] MEDS ORDERED: TRAZODONE HCL150 MG PO (01:02)
[2019-11-26] MEDS ORDERED: DONEPEZIL HCL5 MG PO (01:02)
[2019-11-26] MEDS ORDERED: GLUCOPHAGE500 MG PO (01:03)
[2019-11-26] MEDS ORDERED: ULTRAM50 MG PO (01:04)
--- NOTE | 2019-11-26 05:20 | NUR ---
PATIENT GIVEN ATIVAN 0.5 MG PO AT 20:07 AND 23:13 FOR ANXIETY.
[2019-11-26 06:21] LABS: HEMATOCRIT 36.6 % (36.0-48.0); HEMOGLOBIN 12.3 g/dL (12-16); MCH 30.4 pg (26.0-34.0); MCHC 33.6 g/dL (31.0-37.0); MCV 90.6 fL (80.0-100.0); MEAN PLATELET VOLUME 9.9 fL (7.4-10.4); RBC 4.04 10x6/uL (4.00-5.40); RDW 12.8 % (11.5-14.5)
[2019-11-26 06:43] LABS: PLATELET COUNT 169 10x3/uL (130-400)
[2019-11-26 07:27] LABS: ALBUMIN 3.4 g/dL (3.4-5.0); ANION GAP 9.8 mmol/L (8-16); BILIRUBIN - TOTAL 0.61 mg/dL (0.2-1.3); CALCIUM 8.4 mg/dL (8.5-10.1); CARBON DIOXIDE 26.1 mmol/L (21.0-32.0); CHOL - HDL RATIO 3.2 ratio (2.3-4.1); LDL-HDL RATIO 1.8 ratio (1.5-3.5); POTASSIUM - SERUM 3.9 mmol/L (3.5-5.1); PROTEIN - SERUM 6.6 g/dL (6.4-8.2); THYROID STIMULATING HORMONE 0.65 uIU/mL (0.36-3.74)
[2019-11-26 10:25] VITALS: BP 189/91
[2019-11-26 11:07] LABS: EOSINOPHILS 1 % (0-7); LYMPHOCYTES 38 % (15-50); MONOCYTES 10 % (2-11); NEUTROPHILS 50 % (40-80); PLATELET ESTIMATE NORMAL
[2019-11-26 14:04] VITALS: Ht 172.7 cm; Wt 62.1 kg
--- NOTE | 2019-11-26 14:47 | NUR ---
RECEIVED IN HALLWAY OUTSIDE OF NURSES STATION. VERY ANXIOUS AND AGITATED. ARGUMENTATIVE WITH STAFF. YELLING AT STAFF. EXIT SEEKING. BANGING ON DOORS. UNABLE TO BE REDIRECTED. PRN ATIVAN 0.5 MG IM GIVEN AND PRN HALDOL 2 MG GIVEN. WILL CONTINUE TO MONITOR.
[2019-11-26 20:49] VITALS: BP 147/71
[2019-11-26 22:41] LABS: BILIRUBIN NEGATIVE (NEGATIVE); GLUCOSE NEGATIVE (NEGATIVE); KETONE NEGATIVE (NEGATIVE); NITRITE NEGATIVE (NEGATIVE); SPECIFIC GRAVITY 1.015 (1.005-1.020); UROBILINOGEN NORMAL (NORMAL)
[2019-11-26 22:42] LABS: RED CELLS - URINE 0-5 /hpf (0-5); WHITE CELLS - URINE OCC /hpf (NEGATIVE)
--- NOTE | 2019-11-27 00:03 | NUR ---
B.) PT IS ALERT AND ORIENTED TO SELF ONLY. SHE HAS POOR INSIGHT INTO HER SITUATION. SHE IS INTRUSIVE WITH PEERS. SHE IS ABLE TO AMBULATE WITHOUT ASSIST. I.) PROVIDED PM MEDICATIONS PRESCRIBED. REDIRECT NEEDED. R.) COMPLIANT WITH ALL MEDICATIONS. EASY TO REDIRECT. P.) WILL CONTINUE TO MONITOR.
[2019-11-27 07:14] LABS: RAPID PLASMA REAGIN Non Reactive (Non Reactive)
--- NOTE | 2019-11-27 10:00 | NUR ---
PT PACING AROUND DINING AREA. PT IS ALERT WITH DISORIENTION NOTED. PT IS COMPLIANT WITH MEDS, VITALS AND ASSESSMENTS. PT HAS HAD MADE ANY SI STATEMENTS. PT DENIED TO PREVIOUS SHIFT. PT CAN MAKE NEEDS KNOWN. PT AMBULATES. WILL CONT TO MONITOR SI AND PLAN OF CARE.
[2019-11-27 10:04] VITALS: BP 158/92
--- NOTE | 2019-11-27 11:00 | NUR ---
SW SPOKE WITH PT'S SON ABOUT PT'S CONDITION AND REASON FOR ADMISSION ON THE UNIT. PT'S SON STATED THERE HAD BEEN RECENT MEDICATION CHANGES BUT BEFORE THAT PT WAS STABLE FOR 6 MONTHS. PT'S SON VERBALIZED UNDERSTANDING OF DISCUSSION.
--- NOTE | 2019-11-27 15:30 | PSY ---
PATIENT NAME:MAINOR MANSFIELD MEDICAL RECORD: [id number] : 38 LOCATION:[id number] ADMISSION DATE: 11/25/19 ACCOUNT: [id number] PSYCHIATRIC EVALUATION DATE OF EVALUATION: 11/26/19 IDENTIFYING DATA: The patient is 79 years old and she is admitted to the hospital on a voluntary basis. CHIEF COMPLAINT: Suicidal thoughts. HISTORY OF PRESENT ILLNESS: The patient has a history of psychiatric illness. She was in the Emergency Room at [facility] and said that she was going to kill herself, but would not reveal the plan because she was afraid that they would stop her. She says the same thing to me. She says she initially went there for atrial fibrillation and was cardioverted. She has a history of bipolar disorder, although she rejects that diagnosis. She endorses numerous neurovegetative depressive symptoms. PAST MEDICAL HISTORY: Significant for coronary artery disease, diabetes, hypothyroidism, hysterectomy, atrial fibrillation, and carotid stenosis. PAST PSYCHIATRIC HISTORY: Significant for lifelong psychiatric problems with numerous attempts to harm herself. She has been given lithium in the past, but refused to take it. FAMILY HISTORY: Significant for cancer. ALLERGIES: DEMEROL, SCOPOLAMINE, AND SULFA. CURRENT MEDICATIONS: Include Cardizem, thiamine, folate, Dulcolax, Senokot, Synthroid, Glucophage, Plavix Megace, Lopressor, and lithium. SOCIAL HISTORY: The patient is . She has 2 adult children who have no contact with her. She does have a history of substance abuse, particularly alcohol. She also has a history of marijuana abuse, that is lifelong. MENTAL STATUS EXAMINATION: The patient is awake, alert and oriented to person and place and somewhat to time and situation. Her mood is depressed. Her affect is constricted. Thought processes are circumstantial. Memory, concentration, and abstraction abilities are mildly impaired and she denies that she would seek to harm herself or others as well as overt psychotic symptoms. ASSETS: Supportive family members. LIABILITIES: Limited insight. DIAGNOSTIC IMPRESSION: AXIS I: Bipolar disorder, depressed. AXIS II: Deferred. AXIS III: Tardive dyskinesia, glaucoma, hypothyroidism, diabetes, atrial fibrillation, hypertension and coronary artery disease. AXIS IV: Moderate stressors. AXIS V: Global assessment of functioning is 35. PLAN: At this time, the patient is admitted to the hospital for a comprehensive medical, psychological, and social evaluation. She will be treated with both mood stabilizing and memory enhancing medications. Her long-term prognosis is guarded. TRANSINT:[id number] Voice Confirmation ID: [id number] DOCUMENT ID: [id number] MAVERICK CARTER MD at 1530 CC: [id number] DICTATION DATE: 11/26/19 1615 EXPEDITER: 11/26/19 1626 ADM IN [address] [id number] [place] [address]
[2019-11-27 20:16] VITALS: BP 172/86
--- NOTE | 2019-11-27 20:26 | NUR ---
B.) PT IS ALERT AND ORIENTED TO SELF AND SITUATION. SHE DENIES ANY THOUGHTS OF SELF HARM. SHE IS RECEIVED IN THE DAYROOM SOCIALIZING WITH PEERS. SHE IS DEMANDING AT TIMES WITH STAFF. I.) PROVIDED PM MEDICATIONS PRESCRIBED. REDIRECT OFTEN. R.) COMPLIANT WITH ALL MEDICATIONS. EASY TO REDIRECT. P.) WILL CONTINUE TO MONITOR.
--- NOTE | 2019-11-27 21:00 | NUR ---
PT IS CRITICIZING STAFF FOR TAKING 45 MINUTES TO PASS MEDICATIONS. SHE IS INTRUSIVE AND ATTEMPTS TO INSTIGATE AGGRESSION AMONG OTHER PATIENTS. WILL CONTINUE TO MONITOR.
--- NOTE | 2019-11-28 08:18 | NUR ---
The patient says she would like her prn lorazepam. She says she feels like something is coming on. Ativan 0.5 mg po melissa, will monitor.
--- NOTE | 2019-11-28 09:10 | NUR ---
PT SITTING AT TABLE SOCIALIZING WITH OTHER PEERS EATING BREAKFAST. PT IS SOMATIC AT TIMES. STATED THE NASAL SPRAY IRRIATED HER THROAT AND SHE COULDNT DO IT. PT IS ALERT TO PERSON, PLACE AND TIME. DISORIENT TO SITUATION. PT THINKS SHE IS HERE TO SEE A THERAPIST. PT IS COMPLIANT WITH MEDS, VITALS AND ASSESSMENTS. PT CAN MAKE NEEDS KNOWN. PT C/O OF ANXIETY AT THIS TIME. ATIVAN 0.5 MG PO GIVEN AT THIS TIME. REFUSED LISINOPRIL. WILL CONT TO MONITOR.
--- NOTE | 2019-11-28 10:00 | NUR ---
PT REFUSED A.M. LISINPRIL MEDICATION CAUSE SHE STATED HER BLOOD PRESSURE WAS NORMAL FOR THE FIRST TIME AND SHE DID NOT WANT TO BOTTOM IT OUT. MEDICATION HELD AT THIS TIME. WILL NOTIFY DR. CARDOSO OF MEDICATION HOLD. BLOOD PRESSURE IN NORMAL LIMITS.
[2019-11-28 10:27] VITALS: BP 132/64
--- NOTE | 2019-11-28 12:53 | PN ---
PATIENT:MAINOR MANSFIELD MEDICAL RECORD: [id number] LOCATION:[facility] ADMISSION DATE: 11/25/19 PROGRESS NOTE DATE OF SERVICE: 11/27/2019 SUBJECTIVE: The patient's case was discussed with staff. She has no new complaint. OBJECTIVE: The patient is in good behavioral control with limited insight about her situation. She is eating and sleeping well. She refuses to answer questions about being suicidal. ASSESSMENT: Bipolar disorder, depressed. PLAN: Current medicines have been reviewed and will be maintained. Her long-term prognosis is guarded. TRANSINT:[id number] Voice Confirmation ID: [id number] DOCUMENT ID: [id number] MAVERICK CARTER MD at 1253 CC: [id number] DICTATION DATE: 11/27/19 1614 DURABLE MEDICAL EQUIPMENT TECHNICIAN: 11/27/19 1628 ADM IN [facility] [address] [id number]
--- NOTE | 2019-11-28 14:57 | NUR ---
Nutrition Follow-up: Diet: Diabetic PO intake: 85-100% x all meals Last BM: 11/26/19. WT: 135.2# (11/26/19) Labs noted: POC Glu 120(H). Meds noted: metformin Recommend continue current diet. RD following.
--- NOTE | 2019-11-28 15:52 | NUR ---
PT BECAME UPSET CAUSE SHE STATED SHE HAD NAUSEA AND SOME PEPTO FOR HER STOMACH. NURSE LOOKED AND EXPLAIN THAT SHE DID NOT HAVE ANYTHING ORDERED FOR THAT. SHE STATED WELL I TOLD THE DOCTOR. NURSE STATED "WHICH DOCTOR DID YOU TELL?" SHE TOLD THE SHRINK. NURSE EXPLAINED THAT SHE WOULD HAVE TO CALL THE MEDICAL DOCTOR NOT DR. CARTER. HE DOES OUR PSYCH MEDS NOT MEDICAL. SHE BECAME UPSET STATING WELL I'M TIRED OF BEING SICK AND DONT GET ANYTHING. WHAT AM I GOING HAVE TO DO? PISS ON THE FLOOR OR START CURSING PEOPLE OUT.?" NURSE STATED THAT SHE WOULD NOTIFY THE DOCTOR OF HER NAUSEA BUT I WOULD HAVE TO GET AN ORDER FROM THE DOCTOR. I CANT GIVE MEDICATIONS WITHOUT AN ORDER. PT STATED SHE WAS TIRED OF US TAKING CARE OF THE OTHER PTS AND NOT TAKING CARE OF HER. NURSE STATED PT DID NOT NOTIFY NURSE HER OF NAUSEA SO SHE DID NOT KNOW TO TELL THE DOCTOR. WILL NOTIFY DOCTOR OF PTS C/O AT THIS TIME.
--- NOTE | 2019-11-28 16:14 | NUR ---
ORDERED PRN PEPTO FOR N/O AND UPSET STOMACH.
--- NOTE | 2019-11-28 19:43 | NUR ---
RECEIVED PATIENT IN DAYROOM, SITTING BY HERSELF, WATCHING TV, CALM, HOWEVER SHE CAN BECOME UPSET QUICKLY IF SHE FEELS THAT SHE ISN'T GETTING ENOUGH ATTENTION OR IF HER NEEDS AREN'T BEING MET QUICKLY ENOUTH. COMPLIANT WITH MEDS. WILL FOLLOW POC.
[2019-11-28 20:00] VITALS: BP 168/79
--- NOTE | 2019-11-28 20:34 | NUR ---
PATIENT DENIES SUICIDIAL IDEATIONS AT THIS TIME
[2019-11-29 09:32] VITALS: BP 175/61
--- NOTE | 2019-11-29 12:58 | PN ---
PATIENT:MAINOR MANSFIELD MEDICAL RECORD: [id number] LOCATION:[facility] ADMISSION DATE: 11/25/19 PROGRESS NOTE DATE OF SERVICE: 11/28/2019 SUBJECTIVE: The patient's case was discussed with staff. She has no new complaint. OBJECTIVE: The patient continues to be disorganized and somatic. She has limited insight about her situation. She is sleeping and eating reasonably well. ASSESSMENT: Bipolar disorder. PLAN: Current medicines have been reviewed and will be maintained. Her long-term prognosis is guarded. I am going to increase the dose of her Celexa slightly. TRANSINT:[id number] Voice Confirmation ID: [id number] DOCUMENT ID: [id number] MAVERICK CARTER MD at 1258 CC: [id number] DICTATION DATE: 11/28/19 1450 FOOD PROCESSING PLANT MANAGER: 11/29/19 0059 ADM IN [facility] [address] [id number]
--- NOTE | 2019-11-29 14:08 | NUR ---
The patient is alert and awake, her affect is flat. She has not said one positive thing today. She mostly makes negative statements. Stating staff care for the other patients and not her. She ambulates independently. Provide prescribed meds. The patient is compliant with meds. She requests them. The patient denies S.I. and H.I. Continue POC.
--- NOTE | 2019-11-29 18:14 | NUR ---
PT C/O OF COUGHING AND SNEEZING. MUCINEX PRESCRIBED.
[2019-11-29 20:00] VITALS: BP 141/61
--- NOTE | 2019-11-30 00:48 | NUR ---
RECEIVED PATIENT IN DAYROOM, SHE IS VERY FLAT AND WANTS A LOT OF ATTENTION AND GETS UPSET IF ANOTHER PATIENT GETS MORE ATTENTION THAN SHE DOES, COMPLIANT WITH MEDS. CAN MAKE ALL NEEDS KNOWN. WILL CONTINUE TO MONITOR
[2019-11-30 09:34] VITALS: BP 115/60
--- NOTE | 2019-11-30 12:00 | NUR ---
RECEIVED IN HALLWAY OUTSIDE OF NURSES STATION. CALM AND COOPERATIVE WITH CARE AND ASSESSMENT. DENIES SUICIDAL IDEATION. REDIRECT AND REORIENT NEEDED. EATING AT THIS TIME. CONTINUE PLAN OF CARE.
--- NOTE | 2019-11-30 12:26 | PN ---
PATIENT:MAINOR MANSFIELD MEDICAL RECORD: [id number] LOCATION:[facility] ADMISSION DATE: 11/25/19 PROGRESS NOTE DATE OF SERVICE: 11/29/2019 SUBJECTIVE: The patient's case was discussed with staff. She has no new complaint. OBJECTIVE: The patient is in good behavioral control, but distant and disorganized. ASSESSMENT: Bipolar disorder. PLAN: The patient will have a Depakote level checked. Her long-term prognosis is guarded. I think the mood stabilizer has helped and if she continues to show improvement, I will transition her out of the hospital soon. TRANSINT:[id number] Voice Confirmation ID: [id number] DOCUMENT ID: [id number] MAVERICK CARTER MD at 1226 CC: [id number] DICTATION DATE: 11/29/19 1408 ANESTHESIA TECH: 11/29/19 1732 ADM IN [facility] [address] [place] [address]
[2019-11-30 19:53] VITALS: BP 140/53
--- NOTE | 2019-11-30 20:00 | NUR ---
RECEIVED IN DAYROOM. SITTING ON THE SOFA WITH PEERS AT HER SIDE. SOCIAL WITH THIS NURSE AND WITH PEERS. CALM AND COOPERATIVE WITH CARE AND ASSESSMENT. NO STATEMENTS OF SELF HARM VOICED. ENCOURAGE TO EXPRESS NEEDS. CONTINUES TO STI CALMLY IN DAYROOM. CONTINUE PLAN OF CARE.
[2019-12-01 10:08] VITALS: BP 139/57
[2019-12-01] MEDS ORDERED: BISOPROLOL FUMAR5 MG PO (12:54)
[2019-12-01] MEDS ORDERED: LISINOPRIL10 MG PO (12:54)
[2019-12-01] MEDS ORDERED: Depakote DR PO (12:55)
[2019-12-01] MEDS ORDERED: OSCAL D TABLET PO (12:55)
[2019-12-01] MEDS ORDERED: PROTONIX40 MG PO (12:55)
[2019-12-01] MEDS ORDERED: DEPAKOTE500 MG PO (12:55)
[2019-12-01] MEDS ORDERED: CELEXA20 MG PO (12:55)
--- NOTE | 2019-12-01 13:17 | PN ---
PATIENT:MAINOR MANSFIELD MEDICAL RECORD: [id number] LOCATION:[facility] ADMISSION DATE: 11/25/19 PROGRESS NOTE DATE OF SERVICE: 11/30/2019 SUBJECTIVE: The patient's case was discussed with staff. She has no new complaint. OBJECTIVE: The patient denies being suicidal. She tells me she is not going to take the Depakote when she goes home. She is nice about this, but insists that she does not have bipolar disorder. I am going to go ahead and prescribe it for her anyway and think that she would benefit from it; hopefully, if she goes to a psychiatrist as an outpatient, she will be willing to take it. TRANSINT:[id number] Voice Confirmation ID: [id number] DOCUMENT ID: [id number] MAVERICK CARTER MD at 1317 CC: [id number] DICTATION DATE: 11/30/19 1429 CLINICAL DOCUMENTATION NURSE: 11/30/19 1700 ADM IN [id number] [place] [address]
--- NOTE | 2019-12-01 14:46 | NUR ---
RECEIVED IN HALLWAY OUTSIDE OF NURSES STATION. CALM AND COOPERATIVE WITH CARE AND ASSESSMENT. DENIES SUICIDAL IDEATION. REDIRECT AND REORIENT NEEDED. SITTING IN GROUP AT THIS TIME. CONTINUE PLAN OF CARE.
--- NOTE | 2019-12-01 18:15 | NUR ---
PATIENT DISCHARGED TO HOME. PICKED UP BY HER SON. PAPERWORK FAXED TO PCP AND [facility]. HARD COPY SENT WITH PATIENT. DISCHARGE PAPERWORK AND MEDICATIONS REVIEWED WITH PATIENT AND SHE VERBALIZES UNDERSTANDING. PERSONAL BELONGINGS SENT HOME WITH PATIENT.
--- NOTE | 2019-12-02 14:50 | PN ---
PATIENT:MAINOR MANSFIELD MEDICAL RECORD: [id number] LOCATION:[facility] ADMISSION DATE: 11/25/19 PROGRESS NOTE DATE OF SERVICE: 12/01/2019 SUBJECTIVE: The patient's case was discussed with staff. She has no new complaint. OBJECTIVE: The patient has no thoughts of self-harm and is not psychotic. She wants to go home. She is having some problems with fatigue and this may be related to the Prolixin, which I am going to discontinue. ASSESSMENT: Bipolar disorder. PLAN: The patient is receiving an antidepressant and a mood stabilizer. She should have follow up with her primary care physician and outpatient mental health. These appointments are being arranged. TRANSINT:[id number] Voice Confirmation ID: [id number] DOCUMENT ID: [id number] MAVERICK CARTER MD at 1450 CC: [id number] DICTATION DATE: 12/01/19 1253 SEARCH ENGINE OPTIMIZER: 12/01/19 2157 DIS IN 12/01/19 [facility] [address] [place] [address]
--- NOTE | 2019-12-03 13:00 | DS ---
PATIENT:MAINOR MANSFIELD :38 MEDICAL RECORD: [id number] DISCHARGE SUMMARY ADMISSION DATE: 11/25/19 DISCHARGE DATE: 12/01/19 IDENTIFYING DATA: The patient is 79 years old and she is admitted to the hospital on a voluntary basis. CHIEF COMPLAINT: Suicidal thoughts. HISTORY OF PRESENT ILLNESS: The patient has a history of psychiatric disease. She presented to the Emergency Room at a local hospital and stated she was going to kill herself, but refused to reveal her plan because she was afraid they would stop her. She repeats this to me exactly as it was stated by the Emergency Room at the other hospital. She said she did have thoughts of killing herself and was not going to tell anyone how she would do it. She was admitted to the hospital for evaluation and treatment. HOSPITAL COURSE: The patient was admitted to the hospital and fully evaluated from both a medical, psychological, and social standpoint. Her longitudinal history was consistent with bipolar disorder and she was placed on Depakote. She responded well to that medication. She told me that her suicidal thoughts had left and that her plan was an overdose of her medications. She indicated prior to leaving that she no longer had suicidal thoughts. DISCHARGE DIAGNOSES: AXIS I: Bipolar disorder, depressed. AXIS II: Deferred. AXIS III: Tardive dyskinesia, glaucoma, hypothyroidism, diabetes, atrial fibrillation, hypertension and coronary artery disease. AXIS IV: Moderate stressors. AXIS V: Global assessment of functioning is 40. PLAN: At the time of discharge, the patient was in good behavioral control and had no thoughts of harming herself or others. She was tolerating her medications well. TRANSINT:[id number] Voice Confirmation ID: [id number] DOCUMENT ID: [id number] MAVERICK CARTER MD at 1300 CC: [id number] DICTATION DATE: 12/02/19 1458 PLANT OPERATIONS WORKER: 12/03/19 0246 DIS IN 12/01/19 [address] [place] [id number] [place] [id number]
== END 2019-12-01 18:15 | disposition home or self-care (01) | DRG 885 ==
LOC: D.PSYCH 18:37
PROVIDERS: ADMIT Psychiatry & Neurology Psychiatry; ATTEND Psychiatry & Neurology Psychiatry
DX: F31.9 Bipolar disorder, unspecified (principal); I25.10 Atherosclerotic heart disease of native coronary artery without angina pectoris; I10 Essential (primary) hypertension; I48.91 Unspecified atrial fibrillation; E11.9 Type 2 diabetes mellitus without complications; E03.9 Hypothyroidism, unspecified; H40.9 Unspecified glaucoma; G24.01 Drug induced subacute dyskinesia; K21.9 Gastro-esophageal reflux disease without esophagitis; K59.00 Constipation, unspecified; R11.0 Nausea; J30.9 Allergic rhinitis, unspecified

== ENCOUNTER 2020-03-17 15:00 | Outpatient (CLI) | payer MEDICARE ==
[2019-11-26 14:04] VITALS: BMI 20.5
[~2020-03-17 15:00] MED LIST changes: +BISOPROLOL FUMAR5 MG PO; +BISOPROLOL PO; +CELEXA20 MG PO; +DEPAKOTE500 MG PO; +DONEPEZIL HCL5 MG PO; +Depakote DR PO; +GEODON20 MG PO; +LEVOXYL75 MCG PO; +LISINOPRIL10 MG PO; +OSCAL D TABLET PO; +PRADAXA150 MG PO; +PROTONIX40 MG PO; +REMERON15 MG PO; +TRAZODONE HCL150 MG PO
== END 2020-03-17 23:59 | disposition home or self-care (01) ==
LOC: D.MAMMO 15:00
PROVIDERS: ATTEND Family Medicine
DX: N63.11 Unspecified lump in the right breast, upper outer quadrant (principal)

== ENCOUNTER → 2020-04-05 07:59 | Outpatient (CLI) | payer MEDICARE ==
[2019-11-26 14:04] VITALS: BMI 20.5
== END | disposition home or self-care (01) ==
LOC: D.US 07:59
PROVIDERS: ATTEND Family Medicine
DX: R92.8 Other abnormal and inconclusive findings on diagnostic imaging of breast (principal)